=== PATIENT | female | born 1980 | race Caucasian/White ===

== ENCOUNTER 2017-02-18 16:16 | Outpatient (CLI) | payer OTHER ==
[~2017-02-18] VITALS: Ht 165.1 cm; Wt 79.5 kg
[2017-02-18 16:49] VITALS: Ht 165.1 cm; Wt 79.5 kg
[2017-02-18] MEDS ORDERED: PRENAT PO (16:49)
[2017-02-18 17:05] LABS: ADD SCAN DIFF NO
[2017-02-18 17:07] LABS: HEMATOCRIT 36.9 % (37.0-47.0); HEMOGLOBIN 12.9 g/dl (12.0-16.0); MEAN CORPUSCULAR HEMOGLOBIN 32.9 pg (29.0-33.0); MEAN CORPUSCULAR VOLUME 94.1 fl (82.0-101.0); MEAN PLATELET VOLUME 10.9 fl (7.4-10.4); PLATELET COUNT 181 10^3/UL (140-415); RED BLOOD COUNT 3.92 10^6/ul (4.20-5.40); RED CELL DISTRIBUTION WIDTH 12.7 % (11.5-14.5); WHITE BLOOD COUNT 6.7 10^3/ul (4.8-10.8)
[2017-02-18 17:16] LABS: ADD UMIC YES; UR BILIRUBIN (Dip) NEGATIVE (NEGATIVE); UR BLOOD (Dip) TRACE (NEGATIVE); UR CLARITY CLOUDY (CLEAR); UR COLOR LT. YELLOW (YELLOW); UR GLUCOSE (Dip) NEGATIVE (NEGATIVE); UR KETONES (Dip) NEGATIVE (NEGATIVE); UR LEUKOCYTE ESTERASE (Dip) NEGATIVE (NEGATIVE); UR NITRITE (Dip) NEGATIVE (NEGATIVE); UR TOTAL PROTEIN (Dip) TRACE (NEGATIVE); UR UROBILINOGEN (Dip) 0.2 E.U./dL (0.1-1.0)
[2017-02-18 17:22] LABS: INR 0.94; PROTIME 12.6 Sec (12.2-14.2)
--- NOTE | 2017-02-18 17:22 | RADRPT ---
PROCEDURE: US biophysical profile. CLINICAL INDICATION: induced hypertension. TECHNIQUE: Multiple sonographic images of the uterus were obtained. The images were revi ewed on a PACS workstation. COMPARISON: No prior studies are available for comparison. FINDINGS: There is a single live intrauterine gestation. heart rate is 139 beats per minute. The position is cephalic. The placenta is posterior grade II with no abruption or previa. The TOBIAS is 16.5 cm. (Normal = 5-20 cm.) Breathing Movement: 2 Gross Body Movement: 2 Tone: 2 Qualitative Amniotic Fluid Volume: 2 TOTAL: 8 IMPRESSION: 1. The biophysical score is 8/8. RPTAT: QQ .Michael Waite MD, MD Date Time Electronically viewed and signed by .Michael Waite MD, on 02/18/2017 17:21 .R/
[2017-02-18 17:23] LABS: PARTIAL THROMBOPLASTIN TIME 24.7 Sec (25.0-35.0)
[2017-02-18 17:29] LABS: ALBUMIN 4.1 g/dl (3.3-4.9); ALBUMIN/GLOBULIN RATIO 1.64; BILIRUBIN,INDIRECT 0.3 mg/dl (0-1.1); BILIRUBIN,TOTAL 0.3 mg/dl (0.2-1.3); CALCIUM 9.3 mg/dl (8.4-10.2); CREATININE 0.63 mg/dl (0.44-1.00); POTASSIUM 4.4 mmol/L (3.5-5.1); TOTAL PROTEIN 6.6 g/dl (6.1-8.1); URIC ACID 3.9 mg/dl (3.1-7.9)
[2017-02-18 17:32] LABS: UR BACTERIA MANY; UR SQUAMOUS EPITHELIAL CELL MODERATE
[2017-02-18 17:33] LABS: URINE RBCS 0-2 /HPF (0)
--- NOTE | 2017-02-18 18:17 | TRIAGE ---
OB Triage Datetime Report Generated by CPN: 02/18/2017 18:17 Datetime: 02/18/2017 17:48 Labor Evaluation Frequency: 0 Monitor Mode: External Heart Rate FHR Baseline Rate: 130 Monitor Mode: External US FHR Baseline Changes: No Baseline Change Variability: Moderate 6-25 bpm Accelerations: 15X15 Decelerations: None Category: Category I Pain Assessment Pain Presence: None/Denies Datetime: 02/18/2017 17:04 Labor Evaluation Frequency: OCC Monitor Mode: External Quality: Mild Pattern: Normal: <= 5 Contractions in 10 Minutes Resting Tone [place]: Relaxed Heart Rate FHR Baseline Rate: 130 Monitor Mode: External US FHR Baseline Changes: No Baseline Change Variability: Moderate 6-25 bpm Accelerations: 15X15 Decelerations: None Category: Category I Pain Assessment Pain Presence: None/Denies Datetime: 02/18/2017 17:01 EGA: 36.0 Datetime: 02/18/2017 16:40 Stage of : OB Triage Assessment Type: Triage Maternal Assessment Level of Consciousness: Fully Conscious DTR's/Clonus: DTRs 2+; No Clonus Headache: Denies Blurred Vision: No Respiratory Effort: Unlabored; Regular Rhythm; Equal Expansion Breath Sounds, Left: Clear and Equal Breath Sounds, Right: Clear and Equal Nausea/Vomiting: Denies RUQ Epigastric Pain: Denies Lower Extremities Edema: Bilateral Lower Extremities Degree: 2+ Upper Extremities Edema: None Degree: None Facial Edema: None Temperature Route: Oral Fall Risk Assessment History of Falling: (0) No Secondary Diagnosis: (0) No Ambulatory Aid: (0) Bedrest/Nurse Assist IV Therapy: (0) No Gait: (0) Normal/Bedrest/Immobile Mental Status: (0) Oriented to Own Ability Fall Score: 0 Fall Risk Score Definition: No Risk: No action required Monitor Mode: External Pain Assessment Pain Presence: None/Denies Pain Relief Measures: Comfort Measures Vaginal Exam Membrane Status: Intact Datetime: 02/18/2017 16:20 Time of Arrival: 02/18/2017 16:20 Arrived By: Ambulatory Arrived From: Dr. Barber Chief Complaint: R/O PIH , 24HR URINE COLLECTION Movement: Present Rupture of Membranes: Denies Vaginal Bleeding: None Vaginal Discharge: Denies Recent Sexual Intercouse: Denies Abdominal Trauma: Not Applicable Patient Complaints: Other Time Provider Notified: 02/18/2017 16:30 Provider Notified: ISELA Initial Plan: PIH PANEL AND BPP AND 24HRS URINE
[2017-02-18 19:58] LABS: LYMPHOCYTES # 1.8 10^3/ul (0.8-2.9); MONOCYTE # 1.1 10^3/ul (0.3-0.9); NEUTROPHIL # 3.7 10^3/ul (1.6-7.5)
--- NOTE | 2017-02-18 21:27 | CONS ---
Date/Time of Note Date/Time of Note DATE: 02/18/17 TIME: 21:19 Consultation Date/Type/Reason Admit Date/Time February 18, 2017 Triage consult note Reason for Consultation This patient is a 37 years old 2 1 para 0 with estimated date of confinement of March 18, 2017 which makes it about 36 weeks and 0 days now Due to slight elevation of the blood presser and weight gain , was sent to the triage clinic to rule out possible -induced hypertension Her body weight was 175 pounds On examination her general vital signs were also normal and Blood pressure 132/ 76 , pulse rate 91, respiration 18 temperature 98.6 Her ear nose throat appear to be normal neck was normal no neck vein distention no thyromegaly no lymph node enlargement anywhere in her body her chest was clear abdomen was soft about 8 months size fetus in vertex presentation heart tone was normal and tracing was reactive with occasional acceleration no deceleration Examination of her extremities she has about 1-2+ pedal edema Knee-jerk reflex was about 2+ Hx of Present Illness Laboratory Tests Test 02/18/17 16:55 02/18/17 17:00 White Blood Count 6.710^3/ul Red Blood Count 3.9210^6/ul Hemoglobin 12.9g/dl Hematocrit 36.9% Mean Corpuscular Volume 94.1fl Mean Corpuscular Hemoglobin 32.9pg Mean Corpuscular Hemoglobin Concent 35.0g/dl Red Cell Distribution Width 12.7% Platelet Count 18255^3/UL Mean Platelet Volume 10.9fl Neutrophils % 55.0% Band Neutrophils % 1.0% Lymphocytes % 27.0% Monocytes % 17.0% Neutrophils # 3.710^3/ul Lymphocytes # 1.810^3/ul Monocytes # 1.110^3/ul Prothrombin Time 12.6Sec Prothrombin Time Ratio 1.0 INR International Normalized Ratio 0.94 Activated Partial Thromboplast Time 24.7Sec Sodium Level 136mmol/L Potassium Level 4.4mmol/L Chloride Level 106mmol/L Carbon Dioxide Level 23mmol/L Anion Gap 11 Blood Urea Nitrogen 8mg/dl Creatinine 0.63mg/dl Glucose Level 74mg/dl Uric Acid 3.9mg/dl Calcium Level 9.3mg/dl Total Bilirubin 0.3mg/dl Direct Bilirubin 0.00mg/dl Indirect Bilirubin 0.3mg/dl Aspartate Amino Transf (AST/SGOT) 29IU/L Alanine Aminotransferase (ALT/SGPT) 43IU/L Alkaline Phosphatase 107IU/L Total Protein 6.6g/dl Albumin 4.1g/dl Globulin 2.50g/dl Albumin/Globulin Ratio 1.64 Urine Color LT. YELLOW Urine Clarity CLOUDY Urine pH 6.0 Urine Specific [place] 1.015 Urine Ketones NEGATIVE Urine Nitrite NEGATIVE Urine Bilirubin NEGATIVE Urine Urobilinogen 0.2 E.U./dL Urine Leukocyte Esterase NEGATIVE Urine Microscopic RBC 0-2/HPF Urine Microscopic WBC 5-10/HPF Urine Squamous Epithelial Cells MODERATE Urine Bacteria MANY Urine Hemoglobin TRACE Urine Glucose NEGATIVE% Urine Total Protein TRACE Constitutional: No chills, No diaphoresis, No disoriented, No febrile, No improved, No no complaints, No other, No poor po, No requiring IVF, No requiring O2 Eyes: No discharge, No no complaints, No other, No pain, No redness, No visual change ENT: No bleeding, No congestion, No discharge, No dysphagia, No no complaints, No other, No pain, No sore throat Respiratory: No cough, No no complaints, No other, No pain, No pleuritic pain, No shortness of breath, No sputum, No wheezing Cardiovascular: No chest pain, No edema, No lightheadedness, No no complaints, No orthopenea, No other, No palpitations, No paroxysmal nocturnal dyspnea Gastrointestinal: other, No blood, No constipation, No decreased appetite, No diarrhea, No flatus, No nausea, No no complaints, No pain, No passing stool, No vomiting Genitourinary: other (Pelvic exam was not performed due to the fact that the patient did not have any contractions), No bleeding, No discharge, No dysuria, No flank pain, No hematuria, No no complaints Musculoskeletal: No back pain, No bone/joint pain, No neck pain, No no complaints, No other, No restricted range of motion, No swelling Skin: No bruising, No erythema, No laceration, No no complaints, No other, No pruritis, No rash, No skin lesions Neurologic: other (Knee-jerk reflex was about 1-2+), seizure, No confusion, No dizziness, No focal-weakness, No headache, No no complaints , No syncope Lymphatic: No adenopathy, No lymphadema, No no complaints, No other, No tender nodes Psychological: No anxiety, No confusion, No depression, No nl mood/affect, No no complaints, No other, No suicidal Additional Comments Her urinalysis was negative no protein PT PTT INR were all within normal limites. electrolytes and liver function tests were all completely normal CBC including the platelets were within normal range on ultrasound for biophysical profile was 8/8 With his fairly positive finding patient was discharged home with instruction to collect a 24 hours urine to measure the protein to rule out possible early preeclampsia Social History Smoking Status: Never smoker Exam/Review of Systems Results Result Diagram: 02/18/17 1655 02/18/17 1655 Results 24 hrs Laboratory Tests Test 02/18/17 16:55 02/18/17 17:00 White Blood Count 6.7 Red Blood Count 3.92 L Hemoglobin 12.9 Hematocrit 36.9 L Mean Corpuscular Volume 94.1 Mean Corpuscular Hemoglobin 32.9 Mean Corpuscular Hemoglobin Concent 35.0 Red Cell Distribution Width 12.7 Platelet Count 181 Mean Platelet Volume 10.9 H Neutrophils % 55.0 Band Neutrophils % 1.0 Lymphocytes % 27.0 Monocytes % 17.0 H Neutrophils # 3.7 Lymphocytes # 1.8 Monocytes # 1.1 H Prothrombin Time 12.6 Prothrombin Time Ratio 1.0 INR International Normalized Ratio 0.94 Activated Partial Thromboplast Time 24.7 L Sodium Level 136 Potassium Level 4.4 Chloride Level 106 Carbon Dioxide Level 23 Anion Gap 11 Blood Urea Nitrogen 8 Creatinine 0.63 Glucose Level 74 Uric Acid 3.9 Calcium Level 9.3 Total Bilirubin 0.3 Direct Bilirubin 0.00 Indirect Bilirubin 0.3 Aspartate Amino Transf (AST/SGOT) 29 Alanine Aminotransferase (ALT/SGPT) 43 Alkaline Phosphatase 107 Total Protein 6.6 Albumin 4.1 Globulin 2.50 Albumin/Globulin Ratio 1.64 Urine Color LT. YELLOW Urine Clarity CLOUDY Urine pH 6.0 Urine Specific [place] 1.015 Urine Ketones NEGATIVE Urine Nitrite NEGATIVE Urine Bilirubin NEGATIVE Urine Urobilinogen 0.2 E.U./dL Urine Leukocyte Esterase NEGATIVE Urine Microscopic RBC 0-2 Urine Microscopic WBC 5-10 Urine Squamous Epithelial Cells MODERATE Urine Bacteria MANY Urine Hemoglobin TRACE Urine Glucose NEGATIVE Urine Total Protein TRACE LÓPEZ CROWE MD Feb 18, 2017 21:27
== END 2017-02-18 18:33 | disposition home or self-care (01) ==
LOC: OBT 16:16 → L-D 16:16 → OBT 18:33
PROVIDERS: ATTEND Obstetrics & Gynecology
DX: O26.893 Other specified pregnancy related conditions, third trimester (principal); R03.0 Elevated blood-pressure reading, without diagnosis of hypertension; R63.5 Abnormal weight gain; O09.523 Supervision of elderly multigravida, third trimester; Z3A.36 36 weeks gestation of pregnancy
CPT/HCPCS: 76818; 80053; 81001; 84560; 85025; 85610; 85730

== ENCOUNTER 2017-02-20 11:21 | Outpatient (CLI) | payer OTHER ==
[~2017-02-20] VITALS: Ht 165.1 cm; Wt 78.6 kg
[~2017-02-20 11:21] MED LIST: PRENAT PO
[2017-02-20 12:22] VITALS: Ht 165.1 cm; Wt 78.6 kg
[2017-02-20 12:23] VITALS: BP 124/78; PULSE 95
[2017-02-20 13:50] LABS: SCRET 0.57 mg/dl (0.44-1.00)
--- NOTE | 2017-02-20 17:51 | PN ---
Triage Information Date/Time 02/20/2017 Weeks of Gestation 36 weeks and 2 days : 3 Para: 0 Diabetes: none Hypertention: induced Additional information 37-year-old with IUP at 36 weeks and 2 days with IUP at 36 weeks and 2 days with increased weight gain 6 pounds in last week and borderline elevated blood pressure in the office in 130s over 80s presented and was sent to triage for repeat blood pressure check and dropping 24 hour urine for protein. She denies any headache, blurred vision or epigastric pain. Patient had been monitored here in triage and her blood pressures were 120s over 70s. She denies any leaking of fluid, vaginal bleeding or decreased movement. She reports a swelling of both lower extremities since last week. NST: Category 1. Occasional contractions and on the monitor. Patient does not feel Objective Vital Signs Date Time Temp Pulse Resp B/P Pulse Ox O2 Delivery O2 Flow Rate FiO2 02/20/17 12:23 98.4 95 124/78 Heart Rate: 130's Contractions: >10 Minutes Apart Exam Occasional irregular contractions. Does not feel it. Results/Medications Result Diagram: 02/20/17 1215 Results 24 hrs Laboratory Tests Test 02/20/17 12:00 02/20/17 12:15 Urine Random Creatinine 58.88 Urine Collection Duration 24 Urine Total Volume 24 Hours 2000 Urine Creatinine Timed 24 Creatinine Clearance 143.5 Urine Total Volume (Protein) 2000 Urine Total Protein 24 Hour 200.0 Creatinine 0.57 Imaging Results PROCEDURE: US biophysical profile. CLINICAL INDICATION: induced hypertension. TECHNIQUE: Multiple sonographic images of the uterus were obtained. The images were reviewed on a PACS workstation. COMPARISON: No prior studies are available for comparison. FINDINGS: There is a single live intrauterine gestation. heart rate is 139 beats per minute. The position is cephalic. The placenta is posterior grade II with no abruption or previa. The TOBIAS is 16.5 cm. (Normal = 5-20 cm.) Breathing Movement: 2 Gross Body Movement: 2 Tone: 2 Qualitative Amniotic Fluid Volume: 2 TOTAL: 8 IMPRESSION: 1. The biophysical score is 8/8. RPTAT: QQ Assessment/Plan IUP at 36 weeks and 2 days Borderline elevated blood pressure with 6 pound weight gain since last week. 24 hour urine protein resulted as 200 Patient had been seen 2 days ago in triage and she had a normal pH that. Currently asymptomatic and does not have any signs and symptoms of preeclampsia. NST: Category 1 BPP: 04/09 Strict preeclampsia precaution and labor precaution and kick count discussed with patient next Recommended to have a follow-up in the office in the next 1-2 days for blood pressure check. Patient verbalized understanding. All questions were answered to the patient's best satisfaction. MELQUIADES KAT MD Feb 20, 2017 17:50
== END 2017-02-20 14:27 | disposition home or self-care (01) ==
LOC: OBT 11:21 → L-D 11:22 → OBT 14:27
PROVIDERS: ATTEND Obstetrics & Gynecology
DX: O26.893 Other specified pregnancy related conditions, third trimester (principal); R03.0 Elevated blood-pressure reading, without diagnosis of hypertension; O09.523 Supervision of elderly multigravida, third trimester; Z3A.36 36 weeks gestation of pregnancy
CPT/HCPCS: 82565; 82575; 84156; Z7500; G0463

== ENCOUNTER 2017-03-07 17:15 | Outpatient (CLI) | payer OTHER ==
[~2017-03-07] VITALS: Ht 165.1 cm; Wt 81.0 kg
[2017-03-07 17:42] VITALS: BP 130/78; PULSE 99; RESP 18; Ht 165.1 cm; Wt 81.0 kg
[2017-03-07 18:16] LABS: SCRET 0.54 mg/dl (0.44-1.00)
--- NOTE | 2017-03-07 19:04 | TRIAGE ---
OB Triage Datetime Report Generated by CPN: 03/07/2017 19:04 Datetime: 03/07/2017 18:30 Stage of : OB Triage Maternal Assessment Level of Consciousness: Fully Conscious Labor Evaluation Frequency: OCCASIONAL Monitor Mode: External Duration (sec)2399: 50-70 Quality: Mild Resting Tone [place]: Relaxed Heart Rate FHR Baseline Rate: 135 Monitor Mode: External US Variability: Moderate 6-25 bpm Accelerations: 15X15 Decelerations: None Category: Category I Pain Assessment Pain Scale: 0 Pain Goal: 0 Vaginal Exam Membrane Status: Intact Vaginal Bleeding: None Datetime: 03/07/2017 17:37 Assessment Type: Triage Maternal Assessment Level of Consciousness: Fully Conscious DTR's/Clonus: DTRs 2+; No Clonus Headache: Denies Blurred Vision: No Respiratory Effort: Unlabored; Regular Rhythm; Equal Expansion Breath Sounds, Left: Clear and Equal Breath Sounds, Right: Clear and Equal Nausea/Vomiting: Denies RUQ Epigastric Pain: Denies Lower Extremities Edema: Bilateral Lower Extremities Degree: Pitting Upper Extremities Edema: None Degree: None Facial Edema: None Fall Risk Assessment History of Falling: (0) No Secondary Diagnosis: (0) No Ambulatory Aid: (0) Bedrest/Nurse Assist IV Therapy: (0) No Gait: (0) Normal/Bedrest/Immobile Mental Status: (0) Oriented to Own Ability Fall Score: 0 Fall Risk Score Definition: No Risk: No action required Datetime: 03/07/2017 17:35 Time of Arrival: 03/07/2017 17:12 EGA: 38.3 Arrived By: Ambulatory Arrived From: Home Chief Complaint: pt here WITH 24 HOUR URINE COLLECTION Movement: Present Contractions: Denies/Absent Rupture of Membranes: Denies Vaginal Bleeding: None Vaginal Discharge: Denies Recent Sexual Intercouse: Denies Abdominal Trauma: Not Applicable Patient Complaints: None Time Provider Notified: 03/07/2017 17:40 Provider Notified: FOROOHAR Initial Plan: 24 HOUR URINE COLLECT CREATNINE AND TOTAL PRO Datetime: 03/07/2017 17:32 Monitor Mode: External Monitor Mode: External US Datetime: 03/06/2017 13:51 Stage of : OB Triage Maternal Assessment Level of Consciousness: Fully Conscious DTR's/Clonus: DTRs 2+; No Clonus Headache: Denies Blurred Vision: No Respiratory Effort: Unlabored; Regular Rhythm; Equal Expansion Breath Sounds, Left: Clear and Equal Breath Sounds, Right: Clear and Equal Nausea/Vomiting: Denies RUQ Epigastric Pain: Denies Lower Extremities Edema: Bilateral Lower Extremities Degree: Pitting Upper Extremities Edema: None Degree: None Facial Edema: None Temperature Route: Axillary Fall Risk Assessment History of Falling: (0) No Secondary Diagnosis: (0) No Ambulatory Aid: (0) Bedrest/Nurse Assist IV Therapy: (0) No Gait: (0) Normal/Bedrest/Immobile Mental Status: (0) Oriented to Own Ability Fall Score: 0 Fall Risk Score Definition: No Risk: No action required Labor Evaluation Frequency: none Monitor Mode: External Heart Rate FHR Baseline Rate: 130 Monitor Mode: External US FHR Baseline Changes: No Baseline Change Variability: Moderate 6-25 bpm Accelerations: 15X15 Decelerations: None Pain Assessment Pain Scale: 2 Pain Presence: Intermittent Pain Type: Pressure Pain Location: lower abd Datetime: 03/06/2017 13:49 Time of Arrival: 03/06/2017 13:49 EGA: 38.2 Chief Complaint: lower abd pain and preecclampsia evaluation Movement: Present Rupture of Membranes: Denies Vaginal Bleeding: None Vaginal Discharge: Denies Recent Sexual Intercouse: Denies Abdominal Trauma: Not Applicable Patient Complaints: Other Initial Plan: efm/ PIH panel/ BPP Datetime: 02/20/2017 14:04 Stage of : OB Triage Datetime: 02/20/2017 13:16 Labor Evaluation Frequency: 0 Monitor Mode: External Resting Tone [place]: Relaxed Heart Rate FHR Baseline Rate: 135 Monitor Mode: External US Variability: Moderate 6-25 bpm Accelerations: 10X10 Decelerations: None Category: Category I Pain Assessment Pain Scale: 0 Pain Presence: None/Denies Pain Type: N/A Pain Goal: 3 Pain Relief Measures: Comfort Measures Datetime: 02/20/2017 12:16 Stage of : OB Triage Assessment Type: Triage Maternal Assessment Level of Consciousness: Fully Conscious DTR's/Clonus: DTRs 2+; No Clonus Headache: Denies Blurred Vision: No Respiratory Effort: Unlabored; Regular Rhythm; Equal Expansion Breath Sounds, Left: Clear and Equal Breath Sounds, Right: Clear and Equal Nausea/Vomiting: Denies RUQ Epigastric Pain: Denies Facial Edema: None Temperature Route: Axillary Fall Risk Assessment History of Falling: (0) No Secondary Diagnosis: (0) No Ambulatory Aid: (0) Bedrest/Nurse Assist IV Therapy: (0) No Gait: (0) Normal/Bedrest/Immobile Mental Status: (0) Oriented to Own Ability Fall Score: 0 Fall Risk Score Definition: No Risk: No action required Labor Evaluation Frequency: 0 Monitor Mode: External Resting Tone [place]: Relaxed Heart Rate FHR Baseline Rate: 145 Monitor Mode: External US Variability: Moderate 6-25 bpm Accelerations: 10X10 Decelerations: None Category: Category I Pain Assessment Pain Scale: 1 Pain Presence: Intermittent (Annotations: JUST SOMETIMES FEELS PAIN/PRESSURE WHEN BABY IS MOVING A LOT) Pain Type: Pressure Pain Location: Abdomen; Perineum Pain Goal: 3 Pain Relief Measures: Comfort Measures Datetime: 02/20/2017 12:14 Time of Arrival: 02/20/2017 11:15 EGA: 36.2 Arrived By: Ambulatory Arrived From: Home Chief Complaint: FOLLOW UP VISIT FOR 24 HOUR URINE, DENIES LEAKING OF FLUID, UC'S, OR BLEEDING Movement: Present Contractions: Denies/Absent Rupture of Membranes: Denies Vaginal Discharge: Present Recent Sexual Intercouse: Denies Abdominal Trauma: Not Applicable Patient Complaints: None Time Provider Notified: 02/20/2017 12:20 Provider Notified: [facility] Initial Plan: MONITOR, CREATINE, 24 HR URINE PROTEIN, Datetime: 02/18/2017 17:01 EGA: 36.0 Datetime: 02/18/2017 16:40 Fall Score: 0 Fall Risk Score Definition: No Risk: No action required
--- NOTE | 2017-03-08 13:24 | CONS ---
Date/Time of Note Date/Time of Note DATE: 03/08/17 TIME: 13:16 Consultation Date/Type/Reason Admit Date/Time March 07, 2017 OB triage consult Reason for Consultation This patient is a 37 years old 2 para 0 1 with estimated date of confinement of March 18, 2017 which makes her 38 weeks and 3 days today. She came to triage for the evaluation of high blood pressure and preeclampsia in the past it was ordered to collect a 24-hour urine protein which he brought it back and we have the results on examination she is a well-developed well-nourished [facility] lady, at term in no acute distress Her vital signs are basically normal except for slightly elevated blood pressure. Her blood pressure is 130/78, pulse rate of 99, respiration 18, temperature 98.2 , and O2 saturation of 98 at room temperature Laboratory Tests Test 03/07/17 16:00 Urine Random Creatinine 69.27mg/dl Urine Collection Duration 24hrs Urine Total Volume 24 Hours 1700ml/24hrs Urine Creatinine Timed 24hrs Creatinine Clearance 151.4mls/min Urine Total Volume (Protein) 2700mls Urine Total Protein 24 Hour mg/24hrs Constitutional: No chills, No diaphoresis, No disoriented, No febrile, No improved, No no complaints, No other, No poor po, No requiring IVF, No requiring O2 Eyes: No discharge, No no complaints, No other, No pain, No redness, No visual change ENT: No bleeding, No congestion, No discharge, No dysphagia, No no complaints, No other, No pain, No sore throat Respiratory: No cough, No no complaints, No other, No pain, No pleuritic pain, No shortness of breath, No sputum, No wheezing Cardiovascular: No chest pain, No edema, No lightheadedness, No no complaints, No orthopenea, No other, No palpitations, No paroxysmal nocturnal dyspnea Gastrointestinal: No blood, No constipation, No decreased appetite, No diarrhea , No flatus, No nausea, No no complaints, No other, No pain, No passing stool, No vomiting Genitourinary: other (Due to lack of any contractions pelvic examination was not performed), No bleeding, No discharge, No dysuria, No flank pain, No hematuria, No no complaints Musculoskeletal: No back pain, No bone/joint pain, No neck pain, No no complaints, No other, No restricted range of motion, No swelling Skin: No bruising, No erythema, No laceration, No no complaints, No other, No pruritis, No rash, No skin lesions Neurologic: other (Knee-jerk reflex were normal), No confusion, No dizziness, No focal-weakness, No headache, No no complaints , No seizure, No syncope Endocrine: No dry skin, No no complaints, No other, No polydypsia, No polyuria , No temp intolerance Additional Comments On the laboratory study her CMP was normal as well as electrolytes and liver function tests. Urinalysis was normal there was 1+ blood in the urine and few WBCs. Her CBC was normal with hemoglobin of 13.2 hematocrit 27.9 and platelet of 194, 000. The 24 hours urine collection has been mentioned was examined in the creatinine level was 151.4 and the urine protein was reported to 69.27 mg/dL which does not indicate any -induced hypertension at this time. On ultrasound study report is single live intrauterine in vertex presentation heart tone was 143 bpm placenta was fundal grade 2 , biophysical profile was reported 04/09 with TOBIAS of 9.0 With these finding patient was discharged home to rest and to be followed by her physician in the office and to return to the clinic if any sign of labor pain headache epigastric pain or any other sign of PIH End of dictation Social History Smoking Status: Never smoker Exam/Review of Systems Vital Signs Vitals Vital Signs Date Time Temp Pulse Resp B/P Pulse Ox O2 Delivery O2 Flow Rate FiO2 03/07/17 17:42 98.2 99 18 130/78 98 Room Air Results Results 24 hrs Laboratory Tests Test 03/07/17 16:00 Urine Random Creatinine 69.27 Urine Collection Duration 24 Urine Total Volume 24 Hours 1700 Urine Creatinine Timed 24 Creatinine Clearance 151.4 Urine Total Volume (Protein) 2700 Urine Total Protein 24 Hour LÓPEZ CROWE MD Mar 08, 2017 13:24
== END 2017-03-07 20:00 | disposition home or self-care (01) ==
LOC: OBT 17:15 → L-D 17:16 → OBT 20:00
PROVIDERS: ATTEND Obstetrics & Gynecology
DX: O26.893 Other specified pregnancy related conditions, third trimester (principal); Z3A.38 38 weeks gestation of pregnancy; R03.0 Elevated blood-pressure reading, without diagnosis of hypertension
CPT/HCPCS: 82575; 84156; Z7500; G0463

== ENCOUNTER 2017-03-13 12:21 | Outpatient (CLI) | payer OTHER ==
[~2017-03-13] VITALS: Ht 165.1 cm; Wt 81.1 kg
[2017-03-13 12:42] VITALS: BP 136/77; PULSE 100; RESP 20; Ht 165.1 cm; Wt 81.1 kg
[2017-03-13 13:34] LABS: ADD SCAN DIFF NO
[2017-03-13 13:39] LABS: BASOPHILS % 0.3 % (0.0-2.0); EOSINOPHILS % 0.6 % (0.0-7.0); HEMATOCRIT 33.1 % (37.0-47.0); HEMOGLOBIN 11.8 g/dl (12.0-16.0); LYMPHOCYTES # 1.3 10^3/ul (0.8-2.9); MEAN CORPUSCULAR HEMOGLOBIN 33.1 pg (29.0-33.0); MEAN CORPUSCULAR HGB CONC 35.6 g/dl (32.0-37.0); MEAN CORPUSCULAR VOLUME 92.7 fl (82.0-101.0); MEAN PLATELET VOLUME 11.5 fl (7.4-10.4); MONOCYTE # 0.8 10^3/ul (0.3-0.9); MONOCYTES % 12.2 % (0.0-11.0); NEUTROPHIL # 4.3 10^3/ul (1.6-7.5); NEUTROPHILS % 66.1 % (39.0-77.0); PLATELET COUNT 152 10^3/UL (140-415); RED BLOOD COUNT 3.57 10^6/ul (4.20-5.40); RED CELL DISTRIBUTION WIDTH 12.4 % (11.5-14.5); WHITE BLOOD COUNT 6.5 10^3/ul (4.8-10.8)
[2017-03-13 13:45] LABS: ADD UMIC YES; UR ASCORBIC ACID 20 mg/dL (NEGATIVE); UR BACTERIA FEW /HPF (NONE SEEN); UR BILIRUBIN (Dip) NEGATIVE (NEGATIVE); UR BLOOD (Dip) 1+ mg/dL (NEGATIVE); UR CLARITY CLOUDY (CLEAR); UR COLOR AMBER (YELLOW); UR GLUCOSE (Dip) 1+ mg/dL (NEGATIVE); UR KETONES (Dip) NEGATIVE (NEGATIVE); UR LEUKOCYTE ESTERASE (Dip) NEGATIVE Leu/ul (NEGATIVE); UR MUCUS MODERATE /HPF (NONE SEEN); UR NITRITE (Dip) NEGATIVE (NEGATIVE); UR RBC 3 /HPF (0-5); UR SQUAMOUS EPITHELIAL CELL FEW /HPF (FEW); UR TOTAL PROTEIN (Dip) 2+ mg/dl (NEGATIVE); UR UROBILINOGEN (Dip) NEGATIVE (NEGATIVE)
[2017-03-13 13:53] LABS: ALBUMIN 3.6 g/dl (3.3-4.9); ALBUMIN/GLOBULIN RATIO 1.5; BILIRUBIN,INDIRECT 0.2 mg/dl (0-1.1); BILIRUBIN,TOTAL 0.2 mg/dl (0.2-1.3); CALCIUM 8.9 mg/dl (8.4-10.2); CREATININE 0.67 mg/dl (0.44-1.00); INR 0.94; POTASSIUM 3.8 mmol/L (3.5-5.1); PROTIME 12.6 Sec (12.2-14.2); URIC ACID 4.8 mg/dl (3.1-7.9)
--- NOTE | 2017-03-13 15:27 | RADRPT ---
PROCEDURE: US OB biophysical profile. CLINICAL INDICATION: evaluation, elevated blood pressure TECHNIQUE: Multiple sonographic images of the pelvis were obtained. The images were reviewed on a PACS workstation. COMPARISON: Obstetrical ultrasound from 03/06/2017 FINDINGS: There is a single viable intrauterine gestation. Cardiac activity is present with 129 beats per min [place]. There is a vertex presentation. The placenta is fundal. There is no evidence of placental abruption. There is a mildly low amount of amniotic fluid with an TOBIAS = 7.6 cm. Biophysical profile: movement 2/2 tone 2/2. breathing 2/2 TOBIAS 2/2 Total 04/09 RPTAT: AA . IMPRESSION: Normal biophysical profile. Mildly low TOBIAS of 7.6 cm, compared with an TOBIAS of 9.0 cm on 03/06/2017. Physician Trent Date Time Electronically viewed and signed by Physician Trent on 03/13/2017 15:26 /
--- NOTE | 2017-03-13 15:28 | RADRPT ---
PROCEDURE: Obstetrical ultrasound CLINICAL INDICATION: ELEV BP TECHNIQUE: Multiple sonographic images of the pelvis were obtained. The images were reviewed on a PACS workstation. COMPARISON: Obstetrical ultrasound from 03/06/2017 FINDINGS: The cervix is not well visualized. There is a single viable intrauterine gestation. Cardiac activity is present with 143 beats per minute. There is a vertex presentation. The placenta is fundal. There is no evidence for an abruption or placenta previa. There is a normal amount of amniotic fluid with an TOBIAS = 7.6 cm. Measurements were made in order to determine age. The results are as follows (cm): BPD =9.31 HC =32.75 AC =33.82 FL =7.33 Estimated gestational age by ultrasound of approximately 37 weeks, 4 days. The estimated date of delivery by ultrasound is 03/30/2017. Estimated gestational age by LMP of approximately 38 weeks, 1 day. The estimated date of delivery by LMP is 03/26/2017. EFW = 3262 grams (49th percentile) IMPRESSION: Single viable intrauterine gestation of approximately 37 weeks, 4 days . The estimated date of delivery is 03/30/2017 . Dating by ultrasound is within 4 days of dating by LMP. Mildly low TOBIAS of 7.6 cm. Cephalic presentation. Estimated weight is in the 49th percentile. Fundal placenta without evidence of an abruption. RPTAT: EE Physician Trent Date Time Electronically viewed and signed by Physician Trent on 03/13/2017 15:28 /
--- NOTE | 2017-03-13 17:11 | PN ---
Triage Information Date/Time March 13, 2017 Weeks of Gestation 38 weeks and 1 day : 2 Para: 0 Diabetes: none Hypertention: none Additional information 37-year-old with IUP at 38 weeks and 1 day noted to have borderline elevated blood pressure in the office as well as 4+ protein in the office visits today with Dr. Mccarthy's office. She denied any headache, blurred vision or epigastric or right upper quadrant pain. Patient had a total of 48 pounds weight gain during the whole since first visit. She was sent for rule out PIH to triage. Patient had serial blood pressure 4-3 hours while in the triage every 30 minutes. Her blood pressures were all in the range of 110- 130/60- she denied any symptom. She denied any leaking of fluid, vaginal bleeding or decreased movement. Past OB history significant for history of section 1. She was a scheduled for repeat section at 39 weeks. Urine dip in triage was 2+. She had an early urine protein collectionx2 hours that was Objective Vital Signs Date Time Temp Pulse Resp B/P Pulse Ox O2 Delivery O2 Flow Rate FiO2 03/13/17 12:42 98.3 100 20 136/77 Room Air Heart Rate: 130's Exam General appearance: Alert and oriented 4. Patient does not appear to be in any acute distress. Abdomen: Soft, gravid, nontender, no rebound tenderness, no guarding no rigidity NST: Category 1. No contractions Extremity: 3+ bilateral symmetric nonpitting edema consistent with physiologic edema of no calf tenderness, no click, negative Homans sign PIH labs negative UA: 2+ protein Hematology - 72 Hrs Test 03/13/17 12:52 White Blood Count 6.510^3/ul (4.8-10.8) Red Blood Count 3.5710^6/ul (4.20-5.40) L Hemoglobin 11.8g/dl (12.0-16.0) L Hematocrit 33.1% (37.0-47.0) L Mean Corpuscular Volume 92.7fl (82.0-101.0) Mean Corpuscular Hemoglobin 33.1pg (29.0-33.0) H Mean Corpuscular Hemoglobin Concent 35.6g/dl (32.0-37.0) Red Cell Distribution Width 12.4% (11.5-14.5) Platelet Count 26667^3/UL (140-415) Mean Platelet Volume 11.5fl (7.4-10.4) H Neutrophils % 66.1% (39.0-77.0) Lymphocytes % 20.0% (15.0-51.0) Monocytes % 12.2% (0.0-11.0) H Eosinophils % 0.6% (0.0-7.0) Basophils % 0.3% (0.0-2.0) Nucleated Red Blood Cells % 0.0/100WBC (0.0-0.0) Neutrophils # 4.310^3/ul (1.6-7.5) Lymphocytes # 1.310^3/ul (0.8-2.9) Monocytes # 0.810^3/ul (0.3-0.9) Eosinophils # 0.010^3/ul (0.0-0.5) Basophils # 0.010^3/ul (0.0-0.1) Nucleated Red Blood Cells # 0.010^3/ul (0.0-0.0) Chemistry Test 03/13/17 12:52 Sodium Level 131mmol/L (135-144) L Potassium Level 3.8mmol/L (3.5-5.1) Chloride Level 107mmol/L (97-110) Carbon Dioxide Level 19mmol/L (21-31) L Anion Gap 9 (8-16) Blood Urea Nitrogen 13mg/dl (7-20) Creatinine 0.67mg/dl (0.44-1.00) Glucose Level 92mg/dl (70-220) Uric Acid 4.8mg/dl (3.1-7.9) Calcium Level 8.9mg/dl (8.4-10.2) Total Bilirubin 0.2mg/dl (0.2-1.3) Direct Bilirubin 0.00mg/dl (0.00-0.20) Indirect Bilirubin 0.2mg/dl (0-1.1) Aspartate Amino Transf (AST/SGOT) 33IU/L (15-46) Alanine Aminotransferase (ALT/SGPT) 33IU/L (13-69) Alkaline Phosphatase 118IU/L (42-121) Total Protein 6.0g/dl (6.1-8.1) L Albumin 3.6g/dl (3.3-4.9) Globulin 2.40g/dl (1.3-3.2) Albumin/Globulin Ratio 1.50 Laboratory Tests Test 03/13/17 12:36 03/13/17 12:52 Urine Color WILLIAM Urine Clarity CLOUDY Urine pH 5.0 Urine Specific [place] 1.030 Urine Ketones NEGATIVEmg/dL Urine Nitrite NEGATIVEmg/dL Urine Bilirubin NEGATIVEmg/dL Urine Urobilinogen NEGATIVEmg/dL Urine Leukocyte Esterase NEGATIVELeu/ul Urine Microscopic RBC 3/HPF Urine Microscopic WBC 12/HPF Urine Squamous Epithelial Cells FEW/HPF Urine Bacteria FEW/HPF Urine Mucus MODERATE/HPF Urine Hemoglobin 1+mg/dL Urine Glucose 1+mg/dL Urine Total Protein 2+mg/dl White Blood Count 6.510^3/ul Red Blood Count 3.5710^6/ul Hemoglobin 11.8g/dl Hematocrit 33.1% Mean Corpuscular Volume 92.7fl Mean Corpuscular Hemoglobin 33.1pg Mean Corpuscular Hemoglobin Concent 35.6g/dl Red Cell Distribution Width 12.4% Platelet Count 10114^3/UL Mean Platelet Volume 11.5fl Neutrophils % 66.1% Lymphocytes % 20.0% Monocytes % 12.2% Eosinophils % 0.6% Basophils % 0.3% Nucleated Red Blood Cells % 0.0/100WBC Neutrophils # 4.310^3/ul Lymphocytes # 1.310^3/ul Monocytes # 0.810^3/ul Eosinophils # 0.010^3/ul Basophils # 0.010^3/ul Nucleated Red Blood Cells # 0.010^3/ul Prothrombin Time 12.6Sec Prothrombin Time Ratio 1.0 INR International Normalized Ratio 0.94 Activated Partial Thromboplast Time 27.0Sec Sodium Level 131mmol/L Potassium Level 3.8mmol/L Chloride Level 107mmol/L Carbon Dioxide Level 19mmol/L Anion Gap 9 Blood Urea Nitrogen 13mg/dl Creatinine 0.67mg/dl Glucose Level 92mg/dl Uric Acid 4.8mg/dl Calcium Level 8.9mg/dl Total Bilirubin 0.2mg/dl Direct Bilirubin 0.00mg/dl Indirect Bilirubin 0.2mg/dl Aspartate Amino Transf (AST/SGOT) 33IU/L Alanine Aminotransferase (ALT/SGPT) 33IU/L Alkaline Phosphatase 118IU/L Total Protein 6.0g/dl Albumin 3.6g/dl Globulin 2.40g/dl Albumin/Globulin Ratio 1.50 Results/Medications Result Diagram: 03/13/17 1252 03/13/17 1252 Results 24 hrs Laboratory Tests Test 03/13/17 12:36 03/13/17 12:52 Urine Color WILLIAM Urine Clarity CLOUDY A Urine pH 5.0 Urine Specific [place] 1.030 Urine Ketones NEGATIVE Urine Nitrite NEGATIVE Urine Bilirubin NEGATIVE Urine Urobilinogen NEGATIVE Urine Leukocyte Esterase NEGATIVE Urine Microscopic RBC 3 Urine Microscopic WBC 12 H Urine Squamous Epithelial Cells FEW Urine Bacteria FEW A Urine Mucus MODERATE Urine Hemoglobin 1+ H Urine Glucose 1+ H Urine Total Protein 2+ H White Blood Count 6.5 Red Blood Count 3.57 L Hemoglobin 11.8 L Hematocrit 33.1 L Mean Corpuscular Volume 92.7 Mean Corpuscular Hemoglobin 33.1 H Mean Corpuscular Hemoglobin Concent 35.6 Red Cell Distribution Width 12.4 Platelet Count 152 Mean Platelet Volume 11.5 H Neutrophils % 66.1 Lymphocytes % 20.0 Monocytes % 12.2 H Eosinophils % 0.6 Basophils % 0.3 Nucleated Red Blood Cells % 0.0 Neutrophils # 4.3 Lymphocytes # 1.3 Monocytes # 0.8 Eosinophils # 0.0 Basophils # 0.0 Nucleated Red Blood Cells # 0.0 Prothrombin Time 12.6 Prothrombin Time Ratio 1.0 INR International Normalized Ratio 0.94 Activated Partial Thromboplast Time 27.0 Sodium Level 131 L Potassium Level 3.8 Chloride Level 107 Carbon Dioxide Level 19 L Anion Gap 9 Blood Urea Nitrogen 13 Creatinine 0.67 Glucose Level 92 Uric Acid 4.8 Calcium Level 8.9 Total Bilirubin 0.2 Direct Bilirubin 0.00 Indirect Bilirubin 0.2 Aspartate Amino Transf (AST/SGOT) 33 Alanine Aminotransferase (ALT/SGPT) 33 Alkaline Phosphatase 118 Total Protein 6.0 L Albumin 3.6 Globulin 2.40 Albumin/Globulin Ratio 1.50 Imaging Results ROCEDURE: Obstetrical ultrasound CLINICAL INDICATION: ELEV BP TECHNIQUE: Multiple sonographic images of the pelvis were obtained. The images were reviewed on a PACS workstation. COMPARISON: Obstetrical ultrasound from 03/06/2017 FINDINGS: The cervix is not well visualized. There is a single viable intrauterine gestation. Cardiac activity is present with 143 beats per minute. There is a vertex presentation. The placenta is fundal. There is no evidence for an abruption or placenta previa. There is a normal amount of amniotic fluid with an TOBIAS = 7.6 cm. Measurements were made in order to determine age. The results are as follows (cm): BPD = 9.31 HC = 32.75 AC = 33.82 FL = 7.33 Estimated gestational age by ultrasound of approximately 37 weeks, 4 days. The estimated date of delivery by ultrasound is 03/30/2017. Estimated gestational age by LMP of approximately 38 weeks, 1 day. The estimated date of delivery by LMP is 03/26/2017. EFW = 3262 grams (49th percentile) IMPRESSION: Single viable intrauterine gestation of approximately 37 weeks, 4 days . The estimated date of delivery is 03/30/2017 . Dating by ultrasound is within 4 days of dating by LMP. PROCEDURE: Obstetrical ultrasound CLINICAL INDICATION: ELEV BP TECHNIQUE: Multiple sonographic images of the pelvis were obtained. The images were reviewed on a PACS workstation. COMPARISON: Obstetrical ultrasound from 03/06/2017 FINDINGS: The cervix is not well visualized. There is a single viable intrauterine gestation. Cardiac activity is present with 143 beats per minute. There is a vertex presentation. The placenta is fundal. There is no evidence for an abruption or placenta previa. There is a normal amount of amniotic fluid with an TOBIAS = 7.6 cm. Measurements were made in order to determine age. The results are as follows (cm): BPD = 9.31 HC = 32.75 AC = 33.82 FL = 7.33 Estimated gestational age by ultrasound of approximately 37 weeks, 4 days. The estimated date of delivery by ultrasound is 03/30/2017. Estimated gestational age by LMP of approximately 38 weeks, 1 day. The estimated date of delivery by LMP is 03/26/2017. EFW = 3262 grams (49th percentile) IMPRESSION: Single viable intrauterine gestation of approximately 37 weeks, 4 days . The estimated date of delivery is 03/30/2017 . Dating by ultrasound is within 4 days of dating by LMP. Mildly low TOBIAS of 7.6 cm. Cephalic presentation. Estimated weight is in the 49th percentile. Fundal placenta without evidence of an abruption. RPTAT: EE Assessment/Plan 37 years old IUP at 38 weeks and 1 day No evidence of PIH Normal and appropriate growth Borderline low TOBIAS 7.3. Blood pressure had been serially checked for 2-3 hours in triage and they were in normal range and below 140 over 90s Patient was asymptomatic PIH panels were all negative Patient was advised to have a 24 hour urine protein collection for the next 24 hours and to return to triage for dropping 24 hour urine as well as repeat TOBIAS after 24 hours with a strict labor precaution, kick count and preeclampsia precaution Patient verbalized understanding and agreed to comply with instructions. MELQUIADES KAT MD Mar 13, 2017 17:11
[2017-03-13] MEDS ORDERED: LACTATED RINGER'S 1,000 ML IV PRN (18:00)
== END 2017-03-13 19:10 | disposition home or self-care (01) ==
LOC: OBT 12:21 → L-D 12:22 → OBT 19:10
PROVIDERS: ATTEND Obstetrics & Gynecology
DX: O26.893 Other specified pregnancy related conditions, third trimester (principal); R03.0 Elevated blood-pressure reading, without diagnosis of hypertension; O09.523 Supervision of elderly multigravida, third trimester; O34.219 Maternal care for unspecified type scar from previous cesarean delivery; Z3A.35 35 weeks gestation of pregnancy
CPT/HCPCS: 76815; 76818; 80053; 81001; 84560; 85025; 85610; 85730; 86592; 86850; 86900; 86901; 96360; Z7500; G0463

== ENCOUNTER 2017-03-14 21:06 | Inpatient (IN) | payer OTHER ==
[~2017-03-14] VITALS: Ht 165.1 cm; Wt 81.7 kg
[2017-03-14 22:39] VITALS: BP 142/83; PULSE 83; RESP 18; Ht 165.1 cm; Wt 81.7 kg
[2017-03-14 23:26] LABS: SCRET 0.67 mg/dl (0.44-1.00)
[2017-03-14 23:45] LABS: ADD UMIC YES; UR ASCORBIC ACID 20 mg/dL (NEGATIVE); UR BACTERIA FEW /HPF (NONE SEEN); UR BILIRUBIN (Dip) NEGATIVE (NEGATIVE); UR BLOOD (Dip) NEGATIVE (NEGATIVE); UR CLARITY CLOUDY (CLEAR); UR COLOR AMBER (YELLOW); UR GLUCOSE (Dip) NEGATIVE (NEGATIVE); UR KETONES (Dip) NEGATIVE (NEGATIVE); UR LEUKOCYTE ESTERASE (Dip) NEGATIVE Leu/ul (NEGATIVE); UR MUCUS FEW /HPF (NONE SEEN); UR NITRITE (Dip) NEGATIVE (NEGATIVE); UR RBC 3 /HPF (0-5); UR SPECIFIC GRAVITY (Dip) 1.019 (1.003-1.030); UR TOTAL PROTEIN (Dip) 2+ mg/dl (NEGATIVE); UR UROBILINOGEN (Dip) NEGATIVE (NEGATIVE)
[2017-03-15 00:08] LABS: ADD SCAN DIFF NO
[2017-03-15 00:11] LABS: BASOPHILS % 0.3 % (0.0-2.0); EOSINOPHILS % 0.6 % (0.0-7.0); HEMATOCRIT 33.2 % (37.0-47.0); HEMOGLOBIN 11.9 g/dl (12.0-16.0); LYMPHOCYTES # 1.5 10^3/ul (0.8-2.9); LYMPHOCYTES % 24.6 % (15.0-51.0); MEAN CORPUSCULAR HEMOGLOBIN 33.8 pg (29.0-33.0); MEAN CORPUSCULAR HGB CONC 35.8 g/dl (32.0-37.0); MEAN CORPUSCULAR VOLUME 94.3 fl (82.0-101.0); MONOCYTE # 0.9 10^3/ul (0.3-0.9); MONOCYTES % 14.9 % (0.0-11.0); NEUTROPHIL # 3.7 10^3/ul (1.6-7.5); PLATELET COUNT 137 10^3/UL (140-415); RED BLOOD COUNT 3.52 10^6/ul (4.20-5.40); RED CELL DISTRIBUTION WIDTH 12.4 % (11.5-14.5); WHITE BLOOD COUNT 6.2 10^3/ul (4.8-10.8)
[2017-03-15 00:28] LABS: INR 0.93; PROTIME 12.5 Sec (12.2-14.2)
[2017-03-15 00:29] LABS: PARTIAL THROMBOPLASTIN TIME 26.7 Sec (25.0-35.0)
[2017-03-15 00:32] LABS: ALBUMIN 3.5 g/dl (3.3-4.9); ALBUMIN/GLOBULIN RATIO 1.4; BILIRUBIN,INDIRECT 0.3 mg/dl (0-1.1); BILIRUBIN,TOTAL 0.3 mg/dl (0.2-1.3); CALCIUM 9.7 mg/dl (8.4-10.2); CREATININE 0.6 mg/dl (0.44-1.00)
--- NOTE | 2017-03-15 00:40 | RADRPT ---
PROCEDURE: Biophysical profile. CLINICAL INDICATION: Pelvic pain. TECHNIQUE: Multiple sonographic images of the pelvis were obtained with transabdominal technique. COMPARISON: 03/13/2017. FINDINGS: There is a single living intrauterine gestation with the fetus in a vertex position. The placenta i s posterior in location, grade I to II. heart tones of 148 beats per minute are identified. T here is normal amniotic fluid volume with an TOBIAS of 12.3 cm. breathing movements = 2 Gross body movements = 2 tone = 2 Qualitative AFV = 2 IMPRESSION: Biophysical profile 8 out of 8. .Niraj Sanderson MD, MD Date Time Electronically viewed and signed by .Niraj Sanderson MD, MD on 03/15/2017 00:40 .T/
--- NOTE | 2017-03-15 01:28 | HP ---
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 Blood Type: B+ Rubella: immune RPR/VDRL: Negative GBS Status: Negative HBsAG: Negative OB Admission Exam Vital Signs Vital Signs Vital Signs Date Time Temp Pulse Resp B/P Pulse Ox O2 Delivery O2 Flow Rate FiO2 03/14/17 22:39 98.4 83 18 142/83 Room Air Physical Exam HEENT: WNL Heart: Rhythm Normal Lungs: Clear, Equal Abdomen: WNL Extremities: Normal Reflexes: Normal Cervical Dilatation: other Station: Other Membranes: Intact Heart Rate: 140's Accelerations: Accelerations Present Decelerations: No Decelerations Varibility: Moderate Contractions on Admission: >10 Minutes Apart Intensity: Mild Last 72 hours Lab Results CBC & BMP 03/14/17 23:55 Liver Function Test 03/14/17 23:55 Alanine Aminotransferase (ALT/SGPT) 39 Albumin 3.5 Alkaline Phosphatase 135 H Aspartate Amino Transf (AST/SGOT) 35 Direct Bilirubin 0.00 Total Protein 6.0 L OB Assessment/Plan Reason for admission: other Other Assessment: IUP 38w2d PIH Plan: Section Other plan: patient desire to have elective c/s FILEMON JOHNSON MD Mar 15, 2017 01:24
[2017-03-15] MEDS: LACTATED RINGER'S 1,000 ML IV SCH ×2 (02:23→07:15)
[2017-03-15] MEDS ORDERED: ONDANSETRON 4 MG TAB PO ONE (04:30)
--- NOTE | 2017-03-15 05:10 | TRIAGE ---
OB Triage Datetime Report Generated by CPN: 03/15/2017 05:10 Datetime: 03/15/2017 02:50 Stage of : Antepartum Datetime: 03/15/2017 02:00 Labor Evaluation Frequency: IRREGULAR Monitor Mode: External Duration (sec)2399: 60 Quality: Mild Pattern: Normal: <= 5 Contractions in 10 Minutes Resting Tone [place]: Relaxed Heart Rate FHR Baseline Rate: 145 Monitor Mode: External US FHR Baseline Changes: No Baseline Change Variability: Moderate 6-25 bpm Accelerations: 15X15 Decelerations: None Category: Category I Datetime: 03/15/2017 01:00 Labor Evaluation Frequency: IRREGULAR Monitor Mode: External Duration (sec)2399: 60 Quality: Mild Pattern: Normal: <= 5 Contractions in 10 Minutes Resting Tone [place]: Relaxed Heart Rate FHR Baseline Rate: 135 Monitor Mode: External US FHR Baseline Changes: No Baseline Change Variability: Moderate 6-25 bpm Accelerations: 15X15 Decelerations: None Category: Category I Datetime: 03/15/2017 00:00 Labor Evaluation Frequency: IRREGULAR Monitor Mode: External Duration (sec)2399: 60-80 Quality: Mild Pattern: Normal: <= 5 Contractions in 10 Minutes Resting Tone [place]: Relaxed Heart Rate FHR Baseline Rate: 135 FHR Baseline Changes: No Baseline Change Variability: Moderate 6-25 bpm Accelerations: 15X15 Decelerations: None Category: Category I Datetime: 03/14/2017 23:00 Labor Evaluation Frequency: IRREGULAR Monitor Mode: External Duration (sec)2399: 80 Quality: Mild Pattern: Normal: <= 5 Contractions in 10 Minutes Resting Tone [place]: Relaxed Heart Rate FHR Baseline Rate: 135 Monitor Mode: External US FHR Baseline Changes: No Baseline Change Variability: Moderate 6-25 bpm Accelerations: 15X15 Decelerations: None Category: Category I Datetime: 03/14/2017 22:07 Stage of : OB Triage Assessment Type: Triage Time of Arrival: 03/14/2017 21:05 EGA: 38.2 Arrived By: Wheelchair Arrived From: Home Chief Complaint: FLUID LOW F/U 24HR Movement: Present Contractions: Denies/Absent Rupture of Membranes: Denies Vaginal Bleeding: None Vaginal Discharge: Denies Recent Sexual Intercouse: Denies Abdominal Trauma: Not Applicable Patient Complaints: None (Annotations: Data stored by CPN on behalf of user) Time Provider Notified: 03/14/2017 23:11 Provider Notified: ELIZABETH Initial Plan: CALL NICHOLE JOHNSON Maternal Assessment Level of Consciousness: Fully Conscious DTR's/Clonus: DTRs 2+; No Clonus Headache: Denies Blurred Vision: No Respiratory Effort: Unlabored; Regular Rhythm; Equal Expansion Breath Sounds, Left: Clear and Equal Breath Sounds, Right: Clear and Equal Nausea/Vomiting: Denies RUQ Epigastric Pain: Denies Lower Extremities Edema: None Degree: None Upper Extremities Edema: None Degree: None Facial Edema: None Temperature Route: Oral Fall Risk Assessment History of Falling: (0) No Secondary Diagnosis: (0) No Ambulatory Aid: (0) Bedrest/Nurse Assist IV Therapy: (0) No Gait: (0) Normal/Bedrest/Immobile Mental Status: (0) Oriented to Own Ability Fall Score: 0 Fall Risk Score Definition: No Risk: No action required Monitor Mode: External Monitor Mode: External US Pain Assessment Pain Scale: 0 Datetime: 03/13/2017 18:30 Labor Evaluation Frequency: X3 Monitor Mode: External Duration (sec)2399: 60-80 Quality: Mild Pattern: Normal: <= 5 Contractions in 10 Minutes Resting Tone [place]: Relaxed Heart Rate FHR Baseline Rate: 120 Monitor Mode: External US FHR Baseline Changes: No Baseline Change Variability: Moderate 6-25 bpm Accelerations: 15X15 Decelerations: None Category: Category I Pain Assessment Pain Scale: 0 Pain Presence: None/Denies Pain Type: N/A Pain Goal: 0 Datetime: 03/13/2017 18:01 Labor Evaluation Frequency: 3-5 Monitor Mode: External Duration (sec)2399: 60-80 Quality: Mild Pattern: Normal: <= 5 Contractions in 10 Minutes Resting Tone [place]: Relaxed Heart Rate FHR Baseline Rate: 130 Monitor Mode: External US FHR Baseline Changes: No Baseline Change Variability: Moderate 6-25 bpm Accelerations: 15X15 Decelerations: None Category: Category I Pain Assessment Pain Scale: 0 Pain Presence: None/Denies Pain Type: N/A Pain Goal: 0 Datetime: 03/13/2017 17:30 Labor Evaluation Frequency: X3 Monitor Mode: External Duration (sec)2399: 60 Quality: Mild Pattern: Normal: <= 5 Contractions in 10 Minutes Resting Tone [place]: Relaxed Heart Rate FHR Baseline Rate: 130 Monitor Mode: External US FHR Baseline Changes: No Baseline Change Variability: Moderate 6-25 bpm Accelerations: 15X15 Decelerations: None Category: Category I Pain Assessment Pain Scale: 0 Pain Presence: None/Denies Pain Type: N/A Pain Goal: 0 Datetime: 03/13/2017 17:15 Stage of : OB Triage Datetime: 03/13/2017 17:01 Labor Evaluation Frequency: 17 Monitor Mode: External Duration (sec)2399: 60-100 Quality: Mild Pattern: Normal: <= 5 Contractions in 10 Minutes Resting Tone [place]: Relaxed Monitor Mode: External US FHR Baseline Changes: No Baseline Change Variability: Moderate 6-25 bpm Accelerations: 15X15 Decelerations: None Category: Category I Pain Assessment Pain Scale: 0 Pain Presence: None/Denies Pain Type: N/A Pain Goal: 0 Datetime: 03/13/2017 16:30 Labor Evaluation Frequency: 6-8 Monitor Mode: External Duration (sec)2399: 60-100 Quality: Mild Pattern: Normal: <= 5 Contractions in 10 Minutes Resting Tone [place]: Relaxed Heart Rate FHR Baseline Rate: 130 Monitor Mode: External US FHR Baseline Changes: No Baseline Change Variability: Moderate 6-25 bpm Accelerations: 15X15 Decelerations: None Category: Category I Pain Assessment Pain Scale: 0 Pain Presence: None/Denies Pain Type: N/A Pain Goal: 0 Datetime: 03/13/2017 16:02 Labor Evaluation Frequency: 6-8 Monitor Mode: External Duration (sec)2399: 60 Quality: Mild Pattern: Normal: <= 5 Contractions in 10 Minutes Resting Tone [place]: Relaxed Heart Rate FHR Baseline Rate: 130 Monitor Mode: External US FHR Baseline Changes: No Baseline Change Variability: Moderate 6-25 bpm Accelerations: 15X15 Decelerations: None Category: Category I Pain Assessment Pain Scale: 0 Pain Presence: None/Denies Pain Type: N/A Pain Goal: 0 Datetime: 03/13/2017 15:01 Labor Evaluation Frequency: 5-8 Monitor Mode: External Duration (sec)2399: 60-80 Quality: Mild Pattern: Normal: <= 5 Contractions in 10 Minutes Resting Tone [place]: Relaxed Heart Rate FHR Baseline Rate: 130 Monitor Mode: External US FHR Baseline Changes: No Baseline Change Variability: Moderate 6-25 bpm Accelerations: 15X15 Decelerations: None Category: Category I Pain Assessment Pain Scale: 0 Pain Presence: None/Denies Pain Type: N/A Pain Goal: 0 Datetime: 03/13/2017 14:30 Labor Evaluation Frequency: 2-6 Monitor Mode: External Duration (sec)2399: 60-80 Quality: Mild Pattern: Normal: <= 5 Contractions in 10 Minutes Resting Tone [place]: Relaxed Heart Rate FHR Baseline Rate: 130 Monitor Mode: External US FHR Baseline Changes: No Baseline Change Variability: Moderate 6-25 bpm Accelerations: 15X15 Decelerations: None Category: Category I Pain Assessment Pain Scale: 0 Pain Presence: None/Denies Pain Type: N/A Pain Goal: 0 Datetime: 03/13/2017 14:01 Labor Evaluation Frequency: 6-10 Monitor Mode: External Duration (sec)2399: 60-80 Quality: Mild Pattern: Normal: <= 5 Contractions in 10 Minutes Resting Tone [place]: Relaxed Heart Rate FHR Baseline Rate: 135 Monitor Mode: External US FHR Baseline Changes: No Baseline Change Variability: Moderate 6-25 bpm Accelerations: 15X15 Decelerations: None Category: Category I Pain Assessment Pain Scale: 0 Pain Presence: None/Denies Pain Type: N/A Pain Goal: 0 Datetime: 03/13/2017 13:30 Labor Evaluation Frequency: 2-8 Monitor Mode: External Duration (sec)2399: 60-80 Quality: Strong Pattern: Normal: <= 5 Contractions in 10 Minutes Resting Tone [place]: Relaxed Heart Rate FHR Baseline Rate: 140 Monitor Mode: External US FHR Baseline Changes: No Baseline Change Variability: Moderate 6-25 bpm Accelerations: 15X15 Decelerations: None Category: Category I Pain Assessment Pain Scale: 0 Pain Presence: None/Denies Pain Type: N/A Pain Goal: 0 Datetime: 03/13/2017 12:45 Assessment Type: Triage Maternal Assessment Level of Consciousness: Fully Conscious DTR's/Clonus: DTRs 2+; No Clonus Headache: Denies Blurred Vision: No Respiratory Effort: Unlabored; Regular Rhythm; Equal Expansion Nausea/Vomiting: Denies RUQ Epigastric Pain: Denies Lower Extremities Edema: Bilateral Lower Extremities Degree: Pitting Upper Extremities Edema: Bilateral Upper Extremities Degree: None Facial Edema: None Fall Risk Assessment History of Falling: (0) No Secondary Diagnosis: (0) No Ambulatory Aid: (0) Bedrest/Nurse Assist IV Therapy: (0) No Gait: (0) Normal/Bedrest/Immobile Mental Status: (0) Oriented to Own Ability Fall Score: 0 Fall Risk Score Definition: No Risk: No action required Datetime: 03/13/2017 12:41 Stage of : OB Triage Monitor Mode: External Monitor Mode: External US Pain Assessment Pain Scale: 0 Pain Presence: None/Denies Pain Type: N/A Pain Goal: 0 Datetime: 03/13/2017 12:39 Time of Arrival: 03/13/2017 12:20 EGA: 38.1 Arrived By: Wheelchair Arrived From: Dr. Barber Chief Complaint: SENT FROM CLINIC FOR ELEVATED BP Movement: Decreased Contractions: Denies/Absent Rupture of Membranes: Denies Vaginal Bleeding: None Vaginal Discharge: Denies Recent Sexual Intercouse: Denies Abdominal Trauma: Not Applicable Patient Complaints: Other Time Provider Notified: 03/13/2017 12:50 Provider Notified: DR. WEISS Initial Plan: Kristen, MICHELLE PANEL Datetime: 03/07/2017 17:37 Fall Score: 0 Fall Risk Score Definition: No Risk: No action required Datetime: 03/07/2017 17:35 EGA: 37.2 Datetime: 03/06/2017 13:51 Fall Score: 0 Fall Risk Score Definition: No Risk: No action required Datetime: 03/06/2017 13:49 EGA: 37.1 Datetime: 02/20/2017 12:16 Fall Score: 0 Fall Risk Score Definition: No Risk: No action required Datetime: 02/20/2017 12:14 EGA: 35.1 Datetime: 02/18/2017 17:01 EGA: 34.6 Datetime: 02/18/2017 16:40 Fall Score: 0 Fall Risk Score Definition: No Risk: No action required
[2017-03-15] MEDS ORDERED: LACTATED RINGER'S 1,000 ML IV SCH (10:13)
[2017-03-15] MEDS ORDERED: CEFAZOLIN 2 GM/50 ML (PMX) 50 ML IV SCH (10:30)
[2017-03-15] MEDS ORDERED: OXYTOCIN 30 UNITS/LR 500 ML IV PRN ×3 (10:30→18:00)
[2017-03-15] MEDS ORDERED: MISOPROSTOL 200 MCG TAB PR PRN ×3 (10:30→18:00)
[2017-03-15] MEDS ORDERED: METHYLERGONOVINE 0.2 MG INJ IM PRN ×3 (10:30→18:00)
[2017-03-15] MEDS ORDERED: CARBOPROST 250 MCG INJ IM PRN ×3 (10:30→18:00)
[2017-03-15] MEDS ORDERED: ONDANSETRON 4 MG INJ ONE (11:51)
[2017-03-15] MEDS ORDERED: CITRIC ACID/NA CITRATE 30 ML CUP ONE (11:51)
[2017-03-15] MEDS ORDERED: OXYTOCIN 30 UNITS/LR 500 ML IV SCH ×3 (12:00→16:00)
[2017-03-15] MEDS ORDERED: ONDANSETRON 4 MG INJ IV STA (12:10)
[2017-03-15] MEDS ORDERED: CITRIC ACID/NA CITRATE 30 ML CUP PO ONE (12:30)
[2017-03-15] MEDS ORDERED: PHENYLephrine (100 MCG/ML) 5ML SYG ONE (12:31)
[2017-03-15] MEDS ORDERED: OXYTOCIN 10 UNIT INJ ONE (12:31)
[2017-03-15] MEDS ORDERED: METOCLOPRAMIDE 10 MG INJ ONE (12:31)
[2017-03-15] MEDS ORDERED: DEXAMETHASONE 4 MG/ML 1 ML INJ ONE (12:31)
[2017-03-15] MEDS ORDERED: KETOROLAC 30 MG INJ ONE (12:31)
[2017-03-15] MEDS ORDERED: morphine SULFATE/PF (10 MG/10 ML) INJ ONE (12:31)
[2017-03-15] MEDS ORDERED: MEPERIDINE 100 MG INJ ONE (12:58)
[2017-03-15] MEDS ORDERED: ACETAMINOPHEN 500 MG TAB PO PRN (13:30)
[2017-03-15] MEDS ORDERED: DIPHENHYDRAMINE 50 MG INJ IV PRN (13:30)
[2017-03-15] MEDS ORDERED: morphine 2 MG INJ IV PRN (13:30)
[2017-03-15] MEDS ORDERED: NALBUPHINE HCL (10 MG/1 ML) INJ IV PRN (13:30)
[2017-03-15] MEDS ORDERED: HYDROCODONE/APAP (5/325) TAB PO PRN (13:30)
[2017-03-15] MEDS ORDERED: morphine 4 MG/ML VIAL IV PRN (13:30)
[2017-03-15] MEDS ORDERED: CEFAZOLIN 1 GM/50 ML (PMX) 50 ML IVPB SCH ×2 (13:30→18:00)
[2017-03-15] MEDS ORDERED: HYDROmorphONE 1 MG/ML SYG IV PRN ×2 (13:30)
[2017-03-15] MEDS ORDERED: NALOXONE (0.4 MG/ML) INJ IV PRN (13:30)
[2017-03-15] MEDS ORDERED: ONDANSETRON 4 MG INJ IV PRN (13:30)
[2017-03-15] MEDS ORDERED: OXYCODONE/ACETAMINOPHEN (5/325) TAB PO PRN ×3 (13:30→18:00)
[2017-03-15] MEDS ORDERED: ACETAMINOPHEN/CODEINE #3 TAB PO PRN ×3 (13:30→18:00)
[2017-03-15] MEDS ORDERED: KETOROLAC 30 MG INJ IV PRN (13:30)
--- NOTE | 2017-03-15 14:14 | OPR ---
Operative Report Planned Procedure Free Text/Dictation 37 years old white 2 para 0 SAB 1 EDC of March 26 originally was schedule for primary on March 19, patient request, but since she developed elevated blood pressure of 160 170/100 admitted today diagnosed with moderate to severe PIH she also has proteinuria and ankle edema, patient declined trial of labor and requesting elective primary pros and cons , complications of discussed including but not limited to bowel and bladder injury infection wound hematoma she would like to proceed with the operation Procedure date Mar 15, 2017 Procedure(s) Primary , patient request secondary to -induced hypertension Performed by: AMILCAR WEISS MD Assisting provider: NOEL CALLOWAY MD Anesthesiologist: KISHA ROGERS MD Pre-procedure diagnosis 38 weeks 3/7 days request for section secondary to moderate to severe PIH Declined trial of labor Anesthesia Type: spinal Procedure Description Under satisfactory [spine] anesthesia, the patient was prepped and draped and placed in a supine position, tilted to the left. Pfannenstiel incision was made , carried through the subcutaneous tissue. Bleeders brought under control with electrocautery. Fascia incised to the length of the incision. Rectus muscles from the fascia, divided in midline. Peritoneum exposed, entered through a transverse incision. Exploration of abdomen revealed gravid uterus at term normal-appearing tubes and ovaries. Bladder flap was developed. Transverse incision was made in the lower segment of the uterus. Amniotic sac ruptured. [ Clear] amniotic fluid noted live baby boy was delivered from vertex presentation occiput transverse. Nasal oropharyngeal suction was performed. The baby was handed to the team for immediate attention. placenta delivered manually intact. Uterine cavity cleaned with wet sponge and drainage established. Uterus closed in 2 layers using Monocryl #1 [] in continuous fashion. Peritoneal cavity irrigated with warm saline. Sponge, needle and instrument count reported to be correct. Abdominal peritoneum closed with [2-0 chromic catgut] continuously. Rectus muscle approximated with several interrupted 2-0 chromic catgut]. Fascia closed with [#1 PDS], subcutaneous tissue approximated with 3 interrupted 2-0 chromic catgut suture skin closed with sebas. Estimated blood loss 600]mL. Urine bag contained [200]mL of clear of urine patient tolerated procedure well transferred to recovery room in good condition Post-Procedure Findings: Live Baby [boy], Apgars [9] and [9], weight [], position occiput transverse], presentation vertex Complications: None Pt Condition post procedure: stable Physician Certification I, the undersigned physician, hereby certify that I have discussed the procedure described in this consent form with this patient (or the patient's legal software support representative), including: * The risk and benefits of the procedure; * Any adverse reactions that may reasonably be expected to occur; * Any alternative efficacious methods of treatment which may be medically viable ; * The potential problems that may occur during recuperation; * Potential for blood transfusion and associated risks/benefits; and * Any research or economic interest I may have regarding this treatment. I further certify that the patient/legally responsible person was encouraged to ask question and that all questions were answered. AMILCAR WEISS MD Mar 15, 2017 14:01
[2017-03-15] MEDS ORDERED: OXYTOCIN 30 UNITS/LR 500 ML IVPB ONE (16:00)
[2017-03-15 17:00] VITALS: BP 157/76; PULSE 72; RESP 18
[2017-03-15] MEDS ORDERED: IBUPROFEN 600 MG TAB PO SCH (18:00)
[2017-03-15] MEDS ORDERED: LANOLIN 7 GM TUBE TOP PRN (18:00)
[2017-03-15 19:40] VITALS: BP 135/80; PULSE 82; RESP 19
[2017-03-15] MEDS: LANOLIN 7 GM TUBE TOP PRN (19:52)
[2017-03-15] MEDS: OXYTOCIN 30 UNITS/LR 500 ML IV SCH ×2 (20:59→21:59)
[2017-03-15] MEDS ORDERED: SENNA/DOCUSATE NA (8.6MG/50MG) TAB PO SCH (21:00)
[2017-03-15] MEDS: SENNA/DOCUSATE NA (8.6MG/50MG) TAB PO SCH (21:00)
[2017-03-16] VITALS: BP 142/72; PULSE 97; RESP 18
[2017-03-16] MEDS: LACTATED RINGER'S 1,000 ML IV SCH ×2 (01:05→08:53)
[2017-03-16] MEDS: OXYTOCIN 30 UNITS/LR 500 ML IV SCH ×3 (01:59→09:59)
--- NOTE | 2017-03-16 02:52 | OPPN ---
Date/Time of Note Date/Time of Note DATE: 03/16/17 TIME: 02:52 Post-Anesthesia Notes Post-Anesthesia Note Last documented vital signs Vital Signs Date Time Temp Pulse Resp B/P Pulse Ox O2 Delivery O2 Flow Rate FiO2 03/16/17 00:00 98.9 97 18 142/72 Room Air Activity: WNL Respiratory function: WNL Cardiovascular function: WNL Mental status: Baseline Pain reasonably controlled: Yes Hydration appropriate: Yes Nausea/Vomiting absent: Yes KISHA ROGERS MD Mar 16, 2017 02:52
[2017-03-16 04:05] VITALS: BP 140/82; PULSE 98; RESP 19
[2017-03-16 07:37] LABS: ADD SCAN DIFF NO
[2017-03-16 07:44] LABS: BASOPHILS % 0.2 % (0.0-2.0); EOSINOPHILS % 0.1 % (0.0-7.0); HEMATOCRIT 27.5 % (37.0-47.0); HEMOGLOBIN 9.7 g/dl (12.0-16.0); LYMPHOCYTES # 1.9 10^3/ul (0.8-2.9); LYMPHOCYTES % 14.9 % (15.0-51.0); MEAN CORPUSCULAR HEMOGLOBIN 33.3 pg (29.0-33.0); MEAN CORPUSCULAR HGB CONC 35.3 g/dl (32.0-37.0); MEAN CORPUSCULAR VOLUME 94.5 fl (82.0-101.0); MEAN PLATELET VOLUME 11.2 fl (7.4-10.4); MONOCYTE # 1.3 10^3/ul (0.3-0.9); MONOCYTES % 10.4 % (0.0-11.0); NEUTROPHIL # 9.3 10^3/ul (1.6-7.5); NEUTROPHILS % 73.9 % (39.0-77.0); PLATELET COUNT 151 10^3/UL (140-415); RED BLOOD COUNT 2.91 10^6/ul (4.20-5.40); RED CELL DISTRIBUTION WIDTH 12.4 % (11.5-14.5); WHITE BLOOD COUNT 12.6 10^3/ul (4.8-10.8)
[2017-03-16 08:00] VITALS: BP 132/64; PULSE 102; RESP 16
[2017-03-16] MEDS: SENNA/DOCUSATE NA (8.6MG/50MG) TAB PO SCH ×2 (09:40→21:13)
[2017-03-16] MEDS: IBUPROFEN 600 MG TAB PO SCH ×3 (12:00→23:34)
--- NOTE | 2017-03-16 12:10 | PN ---
Date/Time of Note Date/Time of Note DATE: 03/16/17 TIME: 12:09 OB Subjective Subjective Subjective Post day 1 Afebrile Blood pressures are running 140s over 70s and 80 patient has no complaint of headache blurry vision, her abdomen is soft bowel sounds per, lochia normal, extremities normal still has 1-2+ ankle edema Laboratory Tests Test 03/16/17 06:48 White Blood Count 12.610^3/ul Red Blood Count 2.9110^6/ul Hemoglobin 9.7g/dl Hematocrit 27.5% Mean Corpuscular Volume 94.5fl Mean Corpuscular Hemoglobin 33.3pg Mean Corpuscular Hemoglobin Concent 35.3g/dl Red Cell Distribution Width 12.4% Platelet Count 32030^3/UL Mean Platelet Volume 11.2fl Neutrophils % 73.9% Lymphocytes % 14.9% Monocytes % 10.4% Eosinophils % 0.1% Basophils % 0.2% Nucleated Red Blood Cells % 0.0/100WBC Neutrophils # 9.310^3/ul Lymphocytes # 1.910^3/ul Monocytes # 1.310^3/ul Eosinophils # 0.010^3/ul Basophils # 0.010^3/ul Nucleated Red Blood Cells # 0.010^3/ul Current Medications Medications (Trade) Dose Ordered Sig/Jossy Route PRN Reason Start Time Stop Time Status Last Admin Dose Admin Lactated Ringer's (Lr) 1,000 ml @ 125 mls/hr Q8H IV 03/15/17 01:17 03/15/17 18:04 DC 03/15/17 07:15 Ondansetron HCl 4 mg 4 mg ONCE ONCE PO 03/15/17 04:30 03/15/17 04:31 DC 03/15/17 04:21 Lactated Ringer's 1,000 ml @ 125 mls/hr Q8H IV 03/15/17 10:13 03/15/17 18:04 DC 03/15/17 11:41 Cefazolin Sodium/ Dextrose 50 ml @ 100 mls/hr ONCE IV 03/15/17 10:30 03/15/17 18:04 DC Oxytocin/Lactated Ringer's 500 ml @ 0 mls/hr ONCE PRN IV For Hemorrhage Management 03/15/17 10:30 03/15/17 18:04 DC Methylergonovine Maleate (Methergine) 0.2 mg ONCE PRN IM VAGINAL BLEEDING 03/15/17 10:30 03/15/17 18:04 DC Carboprost Tromethamine (Hemabate) 250 mcg ONCE PRN IM VAGINAL BLEEDING 03/15/17 10:30 03/15/17 18:06 DC Misoprostol 1000 mcg 1,000 mcg ONCE PRN [place] VAGINAL BLEEDING 03/15/17 10:30 03/15/17 18:06 DC Oxytocin/Lactated Ringer's 500 ml @ 125 mls/hr ONCE IV 03/15/17 12:00 03/15/17 18:04 DC 03/15/17 15:54 Citric Acid/ Sodium Citrate (Bicitra) 30 ml STK-MED ONCE .ROUTE 03/15/17 11:51 03/15/17 11:52 DC Ondansetron HCl (Zofran Inj) 4 mg STK-MED ONCE .ROUTE 03/15/17 11:51 03/15/17 11:52 DC Citric Acid/ Sodium Citrate (Bicitra) 30 ml ONCE ONCE PO 03/15/17 12:30 03/15/17 12:31 DC 03/15/17 12:16 Ondansetron HCl (Zofran Inj) 4 mg ONCE STAT IV 03/15/17 12:10 03/15/17 12:16 DC 03/15/17 12:16 Phenylephrine HCl (Gomez-Synephrine Inj Syg) 500 mcg STK-MED ONCE .ROUTE 03/15/17 12:31 03/15/17 12:32 DC Metoclopramide HCl (Reglan) 10 mg STK-MED ONCE .ROUTE 03/15/17 12:31 03/15/17 12:32 DC Oxytocin (Oxytocin) 10 units STK-MED ONCE .ROUTE 03/15/17 12:31 03/15/17 12:32 DC Morphine Sulfate (Duramorph) 10 mg STK-MED ONCE .ROUTE 03/15/17 12:31 03/15/17 12:32 DC Ketorolac Tromethamine (Toradol) 30 mg STK-MED ONCE .ROUTE 03/15/17 12:31 03/15/17 12:32 DC Dexamethasone (Decadron) 4 mg STK-MED ONCE .ROUTE 03/15/17 12:31 03/15/17 12:32 DC Meperidine HCl (Demerol) 100 mg STK-MED ONCE .ROUTE 03/15/17 12:58 03/15/17 12:59 DC Acetaminophen/ Codeine Phosphate (Tylenol No.3) 1 tab Q4H PRN PO PAIN LEVEL 4-6 03/15/17 13:30 03/15/17 18:06 DC Acetaminophen/ Codeine Phosphate (Tylenol No.3) 2 tab Q4H PRN PO PAIN LEVEL 7-10 03/15/17 13:30 03/15/17 18:06 DC Oxycodone/ Acetaminophen (Percocet (5/ 325)) 1 tab Q4H PRN PO PAIN LEVEL 4-6 03/15/17 13:30 03/15/17 18:05 DC Oxycodone/ Acetaminophen (Percocet (5/ 325)) 2 tab Q4H PRN PO PAIN LEVEL 7-10 03/15/17 13:30 03/15/17 18:06 DC Ibuprofen (Motrin) 600 mg Q6 PO 03/16/17 18:00 03/16/17 18:00 DC Simethicone (Mylicon) 160 mg Q8H PRN PO DISTENSION/GAS/BLOATING 03/15/17 13:30 03/15/17 18:06 DC Senna/Docusate Sodium (Senokot-S) 1 tab BID PO 03/15/17 21:00 03/15/17 21:00 DC Lanolin ([id number]) 1 applic BEDSIDE MEDICATION PRN TOP BEDSIDE FOR PADDY TO NIPPLES 03/15/17 13:30 03/15/17 19:52 Diphtheria/ Tetanus/Acell Pertussis 0.5 ml 0.5 ml ONCE ONCE IM* 03/18/17 09:00 03/18/17 09:01 Oxytocin/Lactated Ringer's 500 ml @ 0 mls/hr ONCE PRN IV For Hemorrhage Management 03/15/17 13:30 03/15/17 18:06 DC Methylergonovine Maleate (Methergine) 0.2 mg ONCE PRN IM VAGINAL BLEEDING 03/15/17 13:30 03/15/17 18:06 DC Carboprost Tromethamine (Hemabate) 250 mcg ONCE PRN IM VAGINAL BLEEDING 03/15/17 13:30 03/15/17 18:06 DC Misoprostol 1000 mcg 1,000 mcg ONCE PRN [place] VAGINAL BLEEDING 03/15/17 13:30 03/15/17 18:06 DC Cefazolin Sodium 50 ml @ 100 mls/hr ONCE IVPB 03/15/17 13:30 03/15/17 13:59 DC Oxytocin/Lactated Ringer's 500 ml @ 125 mls/hr Q4H IV 03/15/17 13:27 03/15/17 18:06 DC Hydromorphone HCl (Dilaudid) 0.2 mg Q2H PRN IV PAIN LEVEL 1-5 03/15/17 13:30 Hydromorphone HCl (Dilaudid) 0.4 mg Q2H PRN IV PAIN LEVEL 6-10 03/15/17 13:30 03/16/17 12:23 Morphine Sulfate (morphine) 2 mg Q2H PRN IV PAIN LEVEL 1-5 03/15/17 13:30 03/16/17 12:23 Morphine Sulfate (morphine) 4 mg Q2H PRN IV PAIN LEVEL 6-10 03/15/17 13:30 03/16/17 12:23 Ketorolac Tromethamine (Toradol) 30 mg Q6H PRN IV PAIN LEVEL 6-10 03/15/17 13:30 03/16/17 12:23 Acetaminophen (Tylenol Tab) 500 mg Q4H PRN PO PAIN LEVEL 1-3 03/15/17 13:30 03/15/17 18:05 DC Acetaminophen/ Hydrocodone Bitart ([place] (5/325)) 1 tab Q4H PRN PO PAIN LEVEL 4-6 03/15/17 13:30 03/15/17 18:05 DC Diphenhydramine HCl (Benadryl) 25 mg Q4H PRN IV PRURITUS 03/15/17 13:30 03/16/17 12:23 Nalbuphine HCl (Nubain) 10 mg Q4H PRN IV PRURITUS 03/15/17 13:30 03/15/17 18:06 DC Ondansetron HCl (Zofran Inj) 4 mg Q6H PRN IV NAUSEA AND/OR VOMITING 03/15/17 13:30 03/16/17 12:23 Naloxone HCl (Narcan) 0.2 mg Q2M PRN IV FOR RESP RATE 8 OR LESS 03/15/17 13:30 Miscellaneous Information DURAMORPH: 0.2 MG SPI... GIVEN NEURAXIAL XX 03/15/17 13:30 03/15/17 18:06 DC Oxytocin/Lactated Ringer's 500 ml @ 125 mls/hr ONCE ONCE IVPB 03/15/17 16:00 03/15/17 18:05 DC 03/15/17 15:55 Oxytocin/Lactated Ringer's 500 ml @ 125 mls/hr Q4H IV 03/15/17 16:00 03/15/17 18:05 DC Acetaminophen/ Codeine Phosphate (Tylenol No.3) 1 tab Q4H PRN PO PAIN LEVEL 4-6 03/15/17 18:00 Acetaminophen/ Codeine Phosphate (Tylenol No.3) 2 tab Q4H PRN PO PAIN LEVEL 7-10 03/15/17 18:00 Oxycodone/ Acetaminophen (Percocet (5/ 325)) 1 tab Q4H PRN PO PAIN LEVEL 4-6 03/15/17 18:00 Oxycodone/ Acetaminophen (Percocet (5/ 325)) 2 tab Q4H PRN PO PAIN LEVEL 7-10 03/15/17 18:00 Ibuprofen (Motrin) 600 mg Q6 PO 03/15/17 18:00 03/15/17 18:14 DC Simethicone (Mylicon) 160 mg Q8H PRN PO DISTENSION/GAS/BLOATING 03/15/17 18:00 Senna/Docusate Sodium (Senokot-S) 1 tab BID PO 03/15/17 21:00 03/16/17 09:40 Lanolin ([id number]) 1 applic BEDSIDE MEDICATION PRN TOP BEDSIDE FOR PADDY TO NIPPLES 03/15/17 18:00 Diphtheria/ Tetanus/Acell Pertussis 0.5 ml 0.5 ml ONCE ONCE IM* 03/18/17 09:00 03/18/17 09:01 Oxytocin/Lactated Ringer's 500 ml @ 0 mls/hr ONCE PRN IV For Hemorrhage Management 03/15/17 18:00 Methylergonovine Maleate (Methergine) 0.2 mg ONCE PRN IM VAGINAL BLEEDING 03/15/17 18:00 Carboprost Tromethamine (Hemabate) 250 mcg ONCE PRN IM VAGINAL BLEEDING 03/15/17 18:00 Misoprostol 1000 mcg 1,000 mcg ONCE PRN [place] VAGINAL BLEEDING 03/15/17 18:00 Cefazolin Sodium 50 ml @ 100 mls/hr ONCE IVPB 03/15/17 18:00 03/15/17 18:29 DC 03/15/17 18:20 Oxytocin/Lactated Ringer's 500 ml @ 125 mls/hr Q4H IV 03/15/17 17:59 03/15/17 20:59 Ibuprofen 600 mg 600 mg Q6 PO 03/16/17 12:00 Lactated Ringer's (Lr) 1,000 ml @ 125 mls/hr Q8H IV 03/16/17 01:00 03/16/17 13:00 03/16/17 08:53 AMILCAR WEISS MD Mar 16, 2017 12:10
[2017-03-16 12:31] VITALS: BP 131/72; PULSE 103; RESP 17
[2017-03-16 15:50] VITALS: BP 140/86; PULSE 103; RESP 18
[2017-03-16] MEDS: OXYCODONE/ACETAMINOPHEN (5/325) TAB PO PRN (15:50)
[2017-03-16] MEDS ORDERED: IBUPROFEN 600 MG TAB PO SCH (18:00)
[2017-03-16 19:40] VITALS: BP 128/84; PULSE 99; RESP 18
[2017-03-17] VITALS (7 sets, daily range): BP systolic 127–162; BP diastolic 79–102; PULSE 91–108; RESP 18–19
[2017-03-17] MEDS: IBUPROFEN 600 MG TAB PO SCH ×3 (05:41→17:36)
[2017-03-17] MEDS: SENNA/DOCUSATE NA (8.6MG/50MG) TAB PO SCH ×2 (09:59→20:47)
[2017-03-17] MEDS ORDERED: LABETALOL 100 MG TAB PO ONE (16:30)
[2017-03-17 16:40] LABS: ADD SCAN DIFF NO
[2017-03-17 16:42] LABS: BASOPHILS % 0.2 % (0.0-2.0); EOSINOPHILS # 0.1 10^3/ul (0.0-0.5); EOSINOPHILS % 0.6 % (0.0-7.0); HEMATOCRIT 26.3 % (37.0-47.0); HEMOGLOBIN 9.3 g/dl (12.0-16.0); LYMPHOCYTES # 1.4 10^3/ul (0.8-2.9); LYMPHOCYTES % 14.6 % (15.0-51.0); MEAN CORPUSCULAR HEMOGLOBIN 34.1 pg (29.0-33.0); MEAN CORPUSCULAR HGB CONC 35.4 g/dl (32.0-37.0); MEAN CORPUSCULAR VOLUME 96.3 fl (82.0-101.0); MEAN PLATELET VOLUME 10.2 fl (7.4-10.4); MONOCYTES % 10.3 % (0.0-11.0); NEUTROPHIL # 7.1 10^3/ul (1.6-7.5); NEUTROPHILS % 73.6 % (39.0-77.0); PLATELET COUNT 163 10^3/UL (140-415); RED BLOOD COUNT 2.73 10^6/ul (4.20-5.40); WHITE BLOOD COUNT 9.7 10^3/ul (4.8-10.8)
--- NOTE | 2017-03-17 16:56 | QN ---
Documentation Comment pod2 pt doing well vss exam wnl a/p pod2 continue care NOEL CALLOWAY MD Mar 17, 2017 16:56
[2017-03-17 17:13] LABS: ALBUMIN 3.1 g/dl (3.3-4.9); ALBUMIN/GLOBULIN RATIO 1.34; BILIRUBIN,INDIRECT 0.2 mg/dl (0-1.1); BILIRUBIN,TOTAL 0.2 mg/dl (0.2-1.3); CALCIUM 8.4 mg/dl (8.4-10.2); CREATININE 0.69 mg/dl (0.44-1.00); POTASSIUM 4.2 mmol/L (3.5-5.1); TOTAL PROTEIN 5.4 g/dl (6.1-8.1)
[2017-03-17] MEDS: OXYCODONE/ACETAMINOPHEN (5/325) TAB PO PRN (20:48)
[2017-03-17] MEDS: LANOLIN 7 GM TUBE TOP PRN (20:48)
[2017-03-18] MEDS: IBUPROFEN 600 MG TAB PO SCH ×5 (00:05→23:36)
[2017-03-18 04:00] VITALS: BP 152/86; PULSE 87; RESP 19
[2017-03-18 07:54] LABS: ALBUMIN 2.8 g/dl (3.3-4.9); ALBUMIN/GLOBULIN RATIO 1.33; BILIRUBIN,INDIRECT 0.1 mg/dl (0-1.1); BILIRUBIN,TOTAL 0.1 mg/dl (0.2-1.3); CALCIUM 7.9 mg/dl (8.4-10.2); CREATININE 0.59 mg/dl (0.44-1.00); POTASSIUM 3.7 mmol/L (3.5-5.1); TOTAL PROTEIN 4.9 g/dl (6.1-8.1)
[2017-03-18 08:10] VITALS: BP 138/89; PULSE 95; RESP 20
[2017-03-18] MEDS: SENNA/DOCUSATE NA (8.6MG/50MG) TAB PO SCH ×2 (09:00→20:05)
[2017-03-18] MEDS ORDERED: DIPHTH/TET/ACEL PERTUSS (ADULT) 0.5 ML VIAL IM* ONE ×2 (09:00)
[2017-03-18 11:55] VITALS: BP 150/72; PULSE 86; RESP 20
[2017-03-18 15:46] VITALS: BP 154/78; PULSE 78; RESP 20
--- NOTE | 2017-03-18 17:50 | PN ---
Date/Time of Note Date/Time of Note DATE: 03/18/17 TIME: 17:46 OB Subjective Subjective Subjective Date 3 post Her blood pressure running 154/78 no complaint of headache blurry vision epigastric pain still has 3+ edema, abdomen good bowel sounds had normal bowel movement urine protein prior to delivery 2+ in the absence of neurological symptoms plan of possible a.m. discharge discussed. AMILCAR WEISS MD Mar 18, 2017 17:50
[2017-03-18 19:40] LABS: ALBUMIN 2.9 g/dl (3.3-4.9); ALBUMIN/GLOBULIN RATIO 1.03; BILIRUBIN,INDIRECT 0.2 mg/dl (0-1.1); BILIRUBIN,TOTAL 0.2 mg/dl (0.2-1.3); CALCIUM 8.7 mg/dl (8.4-10.2); CREATININE 0.68 mg/dl (0.44-1.00); POTASSIUM 4.2 mmol/L (3.5-5.1); TOTAL PROTEIN 5.7 g/dl (6.1-8.1)
[2017-03-18] MEDS: LANOLIN 7 GM TUBE TOP PRN (20:05)
[2017-03-18 20:40] VITALS: BP 159/81; PULSE 76; RESP 18
[2017-03-18] MEDS: ACETAMINOPHEN/CODEINE #3 TAB PO PRN (21:49)
[2017-03-19 03:35] VITALS: BP 145/79; PULSE 87; RESP 20
[2017-03-19] MEDS: OXYCODONE/ACETAMINOPHEN (5/325) TAB PO PRN (03:35)
[2017-03-19] MEDS: IBUPROFEN 600 MG TAB PO SCH ×2 (05:31→12:27)
[2017-03-19 08:00] VITALS: BP 124/63; PULSE 82; RESP 18
[2017-03-19] MEDS: SENNA/DOCUSATE NA (8.6MG/50MG) TAB PO SCH (09:00)
--- NOTE | 2017-03-19 10:36 | DS ---
Date/Time of Note Date/Time of Note DATE: 03/19/17 TIME: 10:21 Obstetrical Discharge Record Final Diagnosis Final Diagnosis: Term delivered Section Section: Repeat Condition on Discharge Physical Assessment Last Vitals: March 19, 2017 OB discharge summary Voiding: Yes Bowel Movement: Yes Breast: Soft, non-tender Fundus: Firm Abdomen and Incision: Healing well, sebas will be removed in the clinic next week Laboratory Tests Test 03/18/17 18:47 Sodium Level 138mmol/L Potassium Level 4.2mmol/L Chloride Level 106mmol/L Carbon Dioxide Level 26mmol/L Anion Gap 10 Blood Urea Nitrogen 7mg/dl Creatinine 0.68mg/dl Glucose Level 87mg/dl Calcium Level 8.7mg/dl Total Bilirubin 0.2mg/dl Direct Bilirubin 0.00mg/dl Indirect Bilirubin 0.2mg/dl Aspartate Amino Transf (AST/SGOT) 115IU/L Alanine Aminotransferase (ALT/SGPT) 85IU/L Alkaline Phosphatase 96IU/L Total Protein 5.7g/dl Albumin 2.9g/dl Globulin 2.80g/dl Albumin/Globulin Ratio 1.03 Current Medications Medications (Trade) Dose Ordered Sig/Jossy Route PRN Reason Start Time Stop Time Status Last Admin Dose Admin Lactated Ringer's (Lr) 1,000 ml @ 125 mls/hr Q8H IV 03/15/17 01:17 03/15/17 18:04 DC 03/15/17 07:15 Ondansetron HCl 4 mg 4 mg ONCE ONCE PO 03/15/17 04:30 03/15/17 04:31 DC 03/15/17 04:21 Lactated Ringer's 1,000 ml @ 125 mls/hr Q8H IV 03/15/17 10:13 03/15/17 18:04 DC 03/15/17 11:41 Cefazolin Sodium/ Dextrose 50 ml @ 100 mls/hr ONCE IV 03/15/17 10:30 03/15/17 18:04 DC Oxytocin/Lactated Ringer's 500 ml @ 0 mls/hr ONCE PRN IV For Hemorrhage Management 03/15/17 10:30 03/15/17 18:04 DC Methylergonovine Maleate (Methergine) 0.2 mg ONCE PRN IM VAGINAL BLEEDING 03/15/17 10:30 03/15/17 18:04 DC Carboprost Tromethamine (Hemabate) 250 mcg ONCE PRN IM VAGINAL BLEEDING 03/15/17 10:30 03/15/17 18:06 DC Misoprostol 1000 mcg 1,000 mcg ONCE PRN [place] VAGINAL BLEEDING 03/15/17 10:30 03/15/17 18:06 DC Oxytocin/Lactated Ringer's 500 ml @ 125 mls/hr ONCE IV 03/15/17 12:00 03/15/17 18:04 DC 03/15/17 15:54 Citric Acid/ Sodium Citrate (Bicitra) 30 ml STK-MED ONCE .ROUTE 03/15/17 11:51 03/15/17 11:52 DC Ondansetron HCl (Zofran Inj) 4 mg STK-MED ONCE .ROUTE 03/15/17 11:51 03/15/17 11:52 DC Citric Acid/ Sodium Citrate (Bicitra) 30 ml ONCE ONCE PO 03/15/17 12:30 03/15/17 12:31 DC 03/15/17 12:16 Ondansetron HCl (Zofran Inj) 4 mg ONCE STAT IV 03/15/17 12:10 03/15/17 12:16 DC 03/15/17 12:16 Phenylephrine HCl (Gomez-Synephrine Inj Syg) 500 mcg STK-MED ONCE .ROUTE 03/15/17 12:31 03/15/17 12:32 DC Metoclopramide HCl (Reglan) 10 mg STK-MED ONCE .ROUTE 03/15/17 12:31 03/15/17 12:32 DC Oxytocin (Oxytocin) 10 units STK-MED ONCE .ROUTE 03/15/17 12:31 03/15/17 12:32 DC Morphine Sulfate (Duramorph) 10 mg STK-MED ONCE .ROUTE 03/15/17 12:31 03/15/17 12:32 DC Ketorolac Tromethamine (Toradol) 30 mg STK-MED ONCE .ROUTE 03/15/17 12:31 03/15/17 12:32 DC Dexamethasone (Decadron) 4 mg STK-MED ONCE .ROUTE 03/15/17 12:31 03/15/17 12:32 DC Meperidine HCl (Demerol) 100 mg STK-MED ONCE .ROUTE 03/15/17 12:58 03/15/17 12:59 DC Acetaminophen/ Codeine Phosphate (Tylenol No.3) 1 tab Q4H PRN PO PAIN LEVEL 4-6 03/15/17 13:30 03/15/17 18:06 DC Acetaminophen/ Codeine Phosphate (Tylenol No.3) 2 tab Q4H PRN PO PAIN LEVEL 7-10 03/15/17 13:30 03/15/17 18:06 DC Oxycodone/ Acetaminophen (Percocet (5/ 325)) 1 tab Q4H PRN PO PAIN LEVEL 4-6 03/15/17 13:30 03/15/17 18:05 DC Oxycodone/ Acetaminophen (Percocet (5/ 325)) 2 tab Q4H PRN PO PAIN LEVEL 7-10 03/15/17 13:30 03/15/17 18:06 DC Ibuprofen (Motrin) 600 mg Q6 PO 03/16/17 18:00 03/16/17 18:00 DC Simethicone (Mylicon) 160 mg Q8H PRN PO DISTENSION/GAS/BLOATING 03/15/17 13:30 03/15/17 18:06 DC Senna/Docusate Sodium (Senokot-S) 1 tab BID PO 03/15/17 21:00 03/15/17 21:00 DC Lanolin ([id number]) 1 applic BEDSIDE MEDICATION PRN TOP BEDSIDE FOR PADDY TO NIPPLES 03/15/17 13:30 03/18/17 20:05 Diphtheria/ Tetanus/Acell Pertussis 0.5 ml 0.5 ml ONCE ONCE IM* 03/18/17 09:00 03/18/17 09:01 DC Oxytocin/Lactated Ringer's 500 ml @ 0 mls/hr ONCE PRN IV For Hemorrhage Management 03/15/17 13:30 03/15/17 18:06 DC Methylergonovine Maleate (Methergine) 0.2 mg ONCE PRN IM VAGINAL BLEEDING 03/15/17 13:30 03/15/17 18:06 DC Carboprost Tromethamine (Hemabate) 250 mcg ONCE PRN IM VAGINAL BLEEDING 03/15/17 13:30 03/15/17 18:06 DC Misoprostol 1000 mcg 1,000 mcg ONCE PRN [place] VAGINAL BLEEDING 03/15/17 13:30 03/15/17 18:06 DC Cefazolin Sodium 50 ml @ 100 mls/hr ONCE IVPB 03/15/17 13:30 03/15/17 13:59 DC Oxytocin/Lactated Ringer's 500 ml @ 125 mls/hr Q4H IV 03/15/17 13:27 03/15/17 18:06 DC Hydromorphone HCl (Dilaudid) 0.2 mg Q2H PRN IV PAIN LEVEL 1-5 03/15/17 13:30 03/16/17 12:31 Hydromorphone HCl (Dilaudid) 0.4 mg Q2H PRN IV PAIN LEVEL 6-10 03/15/17 13:30 03/16/17 12:23 DC Morphine Sulfate (morphine) 2 mg Q2H PRN IV PAIN LEVEL 1-5 03/15/17 13:30 03/16/17 12:23 DC Morphine Sulfate (morphine) 4 mg Q2H PRN IV PAIN LEVEL 6-10 03/15/17 13:30 03/16/17 12:23 DC Ketorolac Tromethamine (Toradol) 30 mg Q6H PRN IV PAIN LEVEL 6-10 03/15/17 13:30 03/16/17 12:23 DC Acetaminophen (Tylenol Tab) 500 mg Q4H PRN PO PAIN LEVEL 1-3 03/15/17 13:30 03/15/17 18:05 DC Acetaminophen/ Hydrocodone Bitart ([place] (5/325)) 1 tab Q4H PRN PO PAIN LEVEL 4-6 03/15/17 13:30 03/15/17 18:05 DC Diphenhydramine HCl (Benadryl) 25 mg Q4H PRN IV PRURITUS 03/15/17 13:30 03/16/17 12:23 DC Nalbuphine HCl (Nubain) 10 mg Q4H PRN IV PRURITUS 03/15/17 13:30 03/15/17 18:06 DC Ondansetron HCl (Zofran Inj) 4 mg Q6H PRN IV NAUSEA AND/OR VOMITING 03/15/17 13:30 03/16/17 12:23 DC Naloxone HCl (Narcan) 0.2 mg Q2M PRN IV FOR RESP RATE 8 OR LESS 03/15/17 13:30 Miscellaneous Information DURAMORPH: 0.2 MG SPI... GIVEN NEURAXIAL XX 03/15/17 13:30 03/15/17 18:06 DC Oxytocin/Lactated Ringer's 500 ml @ 125 mls/hr ONCE ONCE IVPB 03/15/17 16:00 03/15/17 18:05 DC 03/15/17 15:55 Oxytocin/Lactated Ringer's 500 ml @ 125 mls/hr Q4H IV 03/15/17 16:00 03/15/17 18:05 DC Acetaminophen/ Codeine Phosphate (Tylenol No.3) 1 tab Q4H PRN PO PAIN LEVEL 4-6 03/15/17 18:00 Acetaminophen/ Codeine Phosphate (Tylenol No.3) 2 tab Q4H PRN PO PAIN LEVEL 7-10 03/15/17 18:00 03/18/17 21:49 Oxycodone/ Acetaminophen (Percocet (5/ 325)) 1 tab Q4H PRN PO PAIN LEVEL 4-6 03/15/17 18:00 Oxycodone/ Acetaminophen (Percocet (5/ 325)) 2 tab Q4H PRN PO PAIN LEVEL 7-10 03/15/17 18:00 03/19/17 03:35 Ibuprofen (Motrin) 600 mg Q6 PO 03/15/17 18:00 03/15/17 18:14 DC Simethicone (Mylicon) 160 mg Q8H PRN PO DISTENSION/GAS/BLOATING 03/15/17 18:00 Senna/Docusate Sodium (Senokot-S) 1 tab BID PO 03/15/17 21:00 03/18/17 20:05 Lanolin (Fzv-[id number]) 1 applic BEDSIDE MEDICATION PRN TOP BEDSIDE FOR PADDY TO NIPPLES 03/15/17 18:00 Diphtheria/ Tetanus/Acell Pertussis 0.5 ml 0.5 ml ONCE ONCE IM* 03/18/17 09:00 03/18/17 09:01 DC Oxytocin/Lactated Ringer's 500 ml @ 0 mls/hr ONCE PRN IV For Hemorrhage Management 03/15/17 18:00 Methylergonovine Maleate (Methergine) 0.2 mg ONCE PRN IM VAGINAL BLEEDING 03/15/17 18:00 Carboprost Tromethamine (Hemabate) 250 mcg ONCE PRN IM VAGINAL BLEEDING 03/15/17 18:00 Misoprostol 1000 mcg 1,000 mcg ONCE PRN MI VAGINAL BLEEDING 03/15/17 18:00 Cefazolin Sodium 50 ml @ 100 mls/hr ONCE IVPB 03/15/17 18:00 03/15/17 18:29 DC 03/15/17 18:20 Oxytocin/Lactated Ringer's 500 ml @ 125 mls/hr Q4H IV 03/15/17 17:59 03/16/17 13:00 DC 03/15/17 20:59 Ibuprofen 600 mg 600 mg Q6 PO 03/16/17 12:00 03/19/17 05:31 Lactated Ringer's (Lr) 1,000 ml @ 125 mls/hr Q8H IV 03/16/17 01:00 03/16/17 13:00 DC 03/16/17 08:53 Labetalol HCl (Normodyne) 100 mg ONCE ONCE PO 03/17/17 16:30 03/17/17 16:31 DC 03/17/17 16:28 Episiotomy: Her blood pressure was elevated on the day of admission and continued to have high blood pressure January .. However her blood pressure is today 124/ 63. She will continue her labetalol 100 mg twice daily at home today she is being seen in few days in the clinic A prescription was given for the labetalol 100 mg tablets to be taken twice a day as well as analgesics Post C section day 4 Doing Well Afebrile Ambulatory Chest Clear Breasts are soft , Nipples are intact Abdomen is soft Fundus is firm Moderate amount of lochia Incision is clean ,No evidence of infection No calf tenderness No ankle edema New born is doing well, Breast feeding Calf Tenderness: No Patient Condition: Good LÓPEZ CROWE MD Mar 19, 2017 10:31
[2017-03-19] MEDS: ACETAMINOPHEN/CODEINE #3 TAB PO PRN (15:20)
== END 2017-03-19 17:28 | disposition home or self-care (01) | DRG 766 ==
LOC: OBT 21:06 → L-D 21:08 → OBT 03-15 00:45 → OBG 03-15 00:45 → L-D 03-15 10:12 → PP1 03-15 16:48
PROVIDERS: ADMIT Obstetrics & Gynecology; ATTEND Obstetrics & Gynecology
PROC: 10D00Z1 Extraction of Products of Conception, Low, Open Approach (ICD-10-PCS; principal; 2017-03-15 12:45)
DX: O13.4 Gestational [pregnancy-induced] hypertension without significant proteinuria, complicating childbirth (principal); H53.8 Other visual disturbances; O12.14 Gestational proteinuria, complicating childbirth; O12.24 Gestational edema with proteinuria, complicating childbirth; O75.9 Complication of labor and delivery, unspecified; Z3A.38 38 weeks gestation of pregnancy; Z37.0 Single live birth
CPT/HCPCS: 36415; 76818; 80053; 81001; 82575; 84156; 84560; 85025; 85384; 85610; 85730; 86592; 87340; 90715; 94760; G0463; J0690; J1100; J1170; J1885; J2175; J2274; J2370; J2405; J2590; J2765; J7120